=== PATIENT | male | born 1945 | race Two or more races ===

== ENCOUNTER 2017-03-31 19:01 | Inpatient (IN) | payer OTHER ==
[~2017-03-31] VITALS: Ht 180.3 cm; Wt 122.5 kg
[2017-03-31 01:25] VITALS: BP 73/41
[2017-03-31] MEDS ORDERED: dilTIAZem IV PUSH 25 MG/5 ML VIAL IVP ONE (19:15)
[2017-03-31] MEDS ORDERED: FURO80TA3 PO (19:33)
[2017-03-31] MEDS ORDERED: UBID100C PO (19:33)
[2017-03-31] MEDS ORDERED: APIX5TAB PO (19:33)
[2017-03-31] MEDS ORDERED: METO100T11 PO (19:33)
[2017-03-31] MEDS ORDERED: SITA50TA PO (19:33)
[2017-03-31] MEDS ORDERED: METO2.5T PO (19:33)
[2017-03-31] MEDS ORDERED: PERI4TAB2 PO (19:33)
[2017-03-31] MEDS ORDERED: ATOR40TA59 PO (19:34)
[2017-03-31] MEDS ORDERED: CHOL10003 PO (19:34)
[2017-03-31] MEDS ORDERED: PANT40TA5 PO (19:34)
[2017-03-31 19:36] LABS: BASO # 0.1 x10^3/uL (0.0-0.2); BASO % 0 % (0-3); EOS % 1 % (0-3); HEMATOCRIT 35.1 % (39.0-53.0); HEMOGLOBIN 11.9 g/dL (13.0-17.5); LYMPH # 0.7 x10^3/uL (1.0-4.8); LYMPH % 3 % (24-48); MEAN CORPUSCULAR HEMOGLOBIN 30 pg (25-35); MEAN CORPUSCULAR HGB CONC 34 g/dL (31-37); MEAN CORPUSCULAR VOLUME 88 fL (79-100); MONO % 6 % (0-9); NEUT % 90 % (31-73); PLATELET COUNT 211 x10^3/uL (140-400); RED BLOOD COUNT 3.97 x10^6/uL (4.30-5.70); RED CELL DISTRIBUTION WIDTH 14.7 % (11.5-14.5); WHITE BLOOD COUNT 20.3 x10^3/uL (4.0-11.0)
[2017-03-31 19:54] LABS: GFR 33.1; POTASSIUM 3.6 mmol/L (3.5-5.1)
[2017-03-31] MEDS ORDERED: NITROGLYCERIN SUBLINGUAL 0.4 MG BOTTLE OF 25. SL PRN (20:00)
[2017-03-31] MEDS ORDERED: ONDANSETRON PF 4 MG/2 ML VIAL. IV ONE (20:00)
[2017-03-31 20:01] LABS: ALBUMIN 3.4 g/dL (3.4-5.0); ALBUMIN/GLOBULIN RATIO 0.8 (1.0-1.7); TOTAL BILIRUBIN 0.7 mg/dL (0.2-1.0); TOTAL PROTEIN 7.9 g/dL (6.4-8.2)
[2017-03-31 20:14] LABS: % BASOS 1 % (0-3); % EOS 2 % (0-5); PLT ESTIMATE ADEQUATE (ADEQUATE)
[2017-03-31] MEDS ORDERED: ACETAMINOPHEN 500 MG TABLET PO ONE (20:45)
[2017-03-31 20:53] LABS: BODY TEMP ABG 100.4 DEG; CORRECTED PCO2 ABG 37 mmHg; CORRECTED PH ABG 7.45; CORRECTED PO2 ABG 95 mmHg; HCO3 ABG 25 mmol/L (21-28); PCO2 ABG 35 mmHg (35-46); PO2 ABG 89 mmHg (65-108); SAT O2 ABG 96 % (92-99)
[2017-03-31 21:08] LABS: PH ABG 7.46 (7.35-7.45)
[2017-03-31] MEDS ORDERED: FUROSEMIDE 20 MG/2 ML VIAL. IVP ONE (21:15)
[2017-03-31] MEDS ORDERED: BISACODYL 10 MG SUPP.RECT. PR ONE (21:30)
[2017-03-31] MEDS ORDERED: DIGOXIN IV 500 MCG/2 ML AMPUL. IV ONE (21:30)
[2017-03-31] MEDS ORDERED: PIPERACILLIN/TAZOBACTAM 3.375 GM in IV NORMAL SALINE 50ML 50 ML IV ONE (21:30)
[2017-03-31] MEDS ORDERED: IV NORMAL SALINE 1000ML BAG 1,000 ML IV ONE (21:30)
[2017-03-31] MEDS ORDERED: IV NORMAL SALINE 500ML BAG 500 ML IV ONE (22:00)
--- NOTE | 2017-03-31 22:45 | ED.ADGEN ---
Past Medical History Past Medical History: CHF, Diabetes-Type II, GERD, High Cholesterol, Hypertension Past Surgical History: Other Additional Past Surgical Histo: STENTS, "VALVE REPAIR" Alcohol Use: None Drug Use: None Adult General Chief Complaint Chief Complaint: NAUSEA/VOMITING/DIARRHA HPI HPI Patient is a 71 year old Male with history of congestive heart failure COPD, diabetes who presents with nausea and chills starting earlier today. Patient noted to be in A. fib with RVR, new onset on ED arrival. Patient also febrile with cough, body aches, left-sided chest pain and upper abdominal pain. Patient is currently on ElOQUIS. Denies chest pain with exertion. Patient is traveling from out of country and resides in [facility]. Accompanied at bedside by his children. Review of Systems Review of Systems ROS PER HPI Current Medications Current Medications Current Medications Medications (Trade) Dose Ordered Sig/Marques Start Time Stop Time Status Last Admin Dose Admin Acetaminophen (Tylenol) 1,000 mg 1X ONCE 03/31/17 20:45 03/31/17 20:46 DC 03/31/17 20:38 1,000 MG Bisacodyl (Dulcolax Supp) 10 mg 1X ONCE 03/31/17 21:30 03/31/17 21:31 DC 03/31/17 21:38 10 MG Digoxin (Lanoxin) 250 mcg 1X ONCE 03/31/17 21:30 03/31/17 21:31 DC 03/31/17 21:51 250 MCG Diltiazem HCl (Cardizem) 20 mg 1X ONCE 03/31/17 19:15 03/31/17 19:24 DC 03/31/17 19:18 20 MG Diltiazem HCl 125 mg/Dextrose 125 ml @ 0 mls/hr 1X ONCE 03/31/17 19:30 03/31/17 19:31 DC 03/31/17 19:30 5 MLS/HR Furosemide (Lasix) 20 mg 1X ONCE 03/31/17 21:15 03/31/17 21:16 DC 03/31/17 22:02 20 MG Levofloxacin/ Dextrose 150 ml @ 100 mls/hr 1X ONCE 03/31/17 20:15 03/31/17 21:44 DC 03/31/17 20:23 100 MLS/HR Nitroglycerin (Nitrostat) 0.4 mg PRN Q5MIN PRN 03/31/17 20:00 03/31/17 20:03 0.4 MG Ondansetron HCl (Zofran) 4 mg 1X ONCE 03/31/17 20:00 03/31/17 20:01 DC 03/31/17 20:01 4 MG Piperacillin Sod/ Tazobactam Sod 3.375 gm/Sodium Chloride 50 ml @ 100 mls/hr 1X ONCE 03/31/17 21:30 03/31/17 21:59 DC 03/31/17 21:39 100 MLS/HR Sodium Chloride 500 ml @ 500 mls/hr 1X ONCE 03/31/17 22:00 03/31/17 22:59 03/31/17 21:30 500 MLS/HR Allergies Allergies Allergies Coded Allergies Type Severity Reaction Last Updated Verified No Known Drug Allergies 03/31/17 No Physical Exam Physical Exam Constitutional: Acutely ill and weak appearing. HENT: Normocephalic, atraumatic, bilateral external ears normal. Eyes: PERRLA, EOMI, conjunctiva normal. Neck: Normal range of motion. Cardiovascular: Tachycardia, irreg rhythm. Lungs & Thorax: Patient's nonlabored, lung sounds Abdomen: Bowel sounds normal, epigastric pain, no tenderness. Skin: Warm, dry. Back: No tenderness. Extremities: Lower left extremity, Charcot. Plus pedal edema. Neurologic: Alert and oriented X 3, normal motor function, normal sensory function, no focal deficits noted. Psychologic: Affect normal, judgement normal, mood normal. Current Patient Data Vital Signs Vital Signs Date Time Temp Pulse Resp B/P (MAP) Pulse Ox O2 Delivery O2 Flow Rate FiO2 03/31/17 21:55 98 24 113/57 (75) 97 Nasal Cannula 2.0 03/31/17 19:57 99.7 99.7 Lab Values Laboratory Tests Test 03/31/17 19:12 03/31/17 20:09 03/31/17 20:52 White Blood Count 20.3 x10^3/uL (4.0-11.0) H Red Blood Count 3.97 x10^6/uL (4.30-5.70) L Hemoglobin 11.9 g/dL (13.0-17.5) L Hematocrit 35.1 % (39.0-53.0) L Mean Corpuscular Volume 88 fL (79-100) Mean Corpuscular Hemoglobin 30 pg (25-35) Mean Corpuscular Hemoglobin Concent 34 g/dL (31-37) Red Cell Distribution Width 14.7 % (11.5-14.5) H Platelet Count 211 x10^3/uL (140-400) Neutrophils (%) (Auto) 90 % (31-73) H Lymphocytes (%) (Auto) 3 % (24-48) L Monocytes (%) (Auto) 6 % (0-9) Eosinophils (%) (Auto) 1 % (0-3) Basophils (%) (Auto) 0 % (0-3) Neutrophils # (Auto) 18.2 x10^3uL (1.8-7.7) H Lymphocytes # (Auto) 0.7 x10^3/uL (1.0-4.8) L Monocytes # (Auto) 1.1 x10^3/uL (0.0-1.1) Eosinophils # (Auto) 0.2 x10^3/uL (0.0-0.7) Basophils # (Auto) 0.1 x10^3/uL (0.0-0.2) Segmented Neutrophils % 83 % (35-66) H Band Neutrophils % 1 % (0-9) Lymphocytes % 5 % (24-48) L Monocytes % 8 % (0-10) Eosinophils % 2 % (0-5) Basophils % 1 % (0-3) Platelet Estimate Adequate (ADEQUATE) Sodium Level 138 mmol/L (136-145) Potassium Level 3.6 mmol/L (3.5-5.1) Chloride Level 99 mmol/L (98-107) Carbon Dioxide Level 29 mmol/L (21-32) Anion Gap 10 (6-14) Blood Urea Nitrogen 71 mg/dL (8-26) H Creatinine 2.0 mg/dL (0.7-1.3) H Estimated GFR (Cockcroft-Gault) 33.1 BUN/Creatinine Ratio 36 (6-20) H Glucose Level 142 mg/dL (70-99) H Calcium Level 9.0 mg/dL (8.5-10.1) Total Bilirubin 0.7 mg/dL (0.2-1.0) Aspartate Amino Transferase (AST) 19 U/L (15-37) Alanine Aminotransferase (ALT) 23 U/L (16-63) Alkaline Phosphatase 107 U/L (46-116) Troponin I Quantitative < 0.017 ng/mL (0.000-0.055) C-Reactive Protein, Quantitative 12.1 mg/L (0-3.3) H KX-Vgz-A-Type Natriuretic Peptide 3130 pg/mL (0-124) H Total Protein 7.9 g/dL (6.4-8.2) Albumin 3.4 g/dL (3.4-5.0) Albumin/Globulin Ratio 0.8 (1.0-1.7) L Thyroid Stimulating Hormone (TSH) 0.917 uIU/mL (0.358-3.74) Lactic Acid Level 1.3 mmol/L (0.4-2.0) O2 Saturation 96 % (92-99) Arterial Blood pH 7.46 (7.35-7.45) H Arterial Blood pH (Temp corrected) 7.45 Arterial Blood pCO2 at Patient Temp 35 mmHg (35-46) Arterial Blood pCO2 (Temp correct) 37 mmHg Arterial Blood pO2 at Patient Temp 89 mmHg (65-108) Arterial Blood pO2 (Temp corrected) 95 mmHg Arterial Blood HCO3 25 mmol/L (21-28) Arterial Blood Base Excess 1 mmol/L (-3-3) FiO2 28.0 Laboratory Tests 03/31/17 19:12 Laboratory Tests 03/31/17 19:12 EKG EKG [EKG: A. fib with RVR] Radiology/Procedures Radiology/Procedures [Chest x-ray: Left lower lobe infiltrate] Impressions: Sepsis pneumonia, new onset A. fib with RVR, congestive heart failure and nonspecific chest pain Course & Med Decision Making Course & Med Decision Making Pertinent Labs and Imaging studies reviewed. (See chart for details) [Patient aggressively treated with IV Cardizem, Lasix, digoxin, and started on empiric antibiotics with stabilization of vital signs. IV fluid hydration cautiously given due to presence of underlying congestive heart failure. Dr. Barfield agrees to admit. Dr. Ash consulted agrees to follow.] Dragon Disclaimer Dragon Disclaimer This electronic medical record was generated, in whole or in part, using a voice recognition dictation system. KIERRA MANZANARES DO March 31, 2017 22:45
--- NOTE | 2017-03-31 23:59 | ACF ---
Admission Forms Criteria PNEUMONIA, COMMUNITY ACQUIRED Clinical Indications for Admission to Inpatient Care ( Place 'X' for any and all applicable criteria): Admission is indicated for ANY ONE of the following (1)(2)(3): [ ]I. Hypoxemia indicated by ANY ONE of the following: [ ]a) Oxygen saturation less than 90% while breathing room air [ ]b) PO2 less than 60 mm Hg (8.0 kPa) while breathing room air [ ]c) Chronic lung disease with significant deterioration from baseline oxygenation [ ]II. Appropriate diagnostic testing and treatment unavailable in outpatient or recovery facility (eg,testing or infection control measures unavailable(10) [X]III. Moderate-risk or high-risk category patients (Pneumonia Severity Index (PSI) class IV or V, or CURB-65 score of 3 or greater). [ ]IV. Outpatient treatment failure as indicated by ANY ONE of the following(9) : [ ]a) Failure to respond to antibiotic (eg, resistant organism) [ ]b) Clinically significant adverse effects from medication (eg, vomiting) [ ]c) Complications of pneumonia (eg, empyema, bacteremia) [ ]d) Significant worsening of comorbid cond necessitating inpatient care (eg, chronic heart failure) [ ]V. Intermediate-risk category patients (eg, PSI class III or CURB-65 score 2) who do not improve with initial therapy and observation. [ ]. Immunocompromised patients (eg, AIDS, chronic steroid use) at moderate or high risk based on clinical evaluation. [ ]VII. Complicated pleural effusions (eg, exudative, loculated) [ ]VIII.Hemodynamic instability [ ] IX. Altered mental status that is severe or persistent. [ ]X. Dehydration that is severe or persistent. [ ]XI. Bacteremia [ ]XII. Respiratory finding (eg. tachypnea) that do not respond to outpatient or observation care treatment Extended stay beyond goal length of stay may be needed for (20) [ ]a) Unclear diagnosis [ ]b) Pleural disease [ ]c) Severe pneumonia or treatment failure (25 [ ]d) Respiratory failure (anticipate invasive or noninvasive ventilatory support) [ ]e) Abnormal serum electrolytes (serum Na concentration less than 135 mEq/L (mmol/L) (32)(33) [ ]f) Clinically significant comorbid illness (eg, heart failure, atrial fibrillation with rapid heart rate, alcohol withdrawal, renal insufficiency)(34)(35) [ ]g) Comorbid acute exacerbation of COPD(36) [ ]h) Concomitant diagnosis of malignancy that may be associated with malnutrition, immunologic impairment, or bronchial obstruction. [ ]i) Concomitant altered mental status [ ]j) Culture-identified Gram-negative or antibiotic-resistant organism (eg, Pseudomonas, methicillin-resistant Staphylococcus aureus)(30) [ ]k) Healthcare-associated pneumonia The original [email or web address] content created by Ellie has been revised. The portions of the content which have been revised are identified through the use of italic text or in bold, and [facility] [facility] has neither reviewed nor approved the modified material. All other unmodified content is copyright [email or web address]. Please see references footnoted in the original [facility] edition 2016 Admission Criteria Met?: Yes MATHEW LANGFORD March 31, 2017 23:59
[2017-04-01] VITALS (40 sets, daily range): BP systolic 62–125; BP diastolic 38–89
[2017-04-01] MEDS ORDERED: IV NORMAL SALINE 1000ML BAG 1,000 ML IV ONE ×4 (01:45→21:00)
[2017-04-01] MEDS: ACETAMINOPHEN 325 MG TABLET. PO PRN ×4 (02:00→20:42)
[2017-04-01 03:46] LABS: BASO % 0 % (0-3); EOS % 0 % (0-3); HEMATOCRIT 28.7 % (39.0-53.0); HEMOGLOBIN 9.8 g/dL (13.0-17.5); LYMPH # 0.2 x10^3/uL (1.0-4.8); LYMPH % 1 % (24-48); MEAN CORPUSCULAR HEMOGLOBIN 30 pg (25-35); MEAN CORPUSCULAR HGB CONC 34 g/dL (31-37); MEAN CORPUSCULAR VOLUME 88 fL (79-100); MONO % 6 % (0-9); NEUT % 93 % (31-73); PLATELET COUNT 144 x10^3/uL (140-400); RED BLOOD COUNT 3.26 x10^6/uL (4.30-5.70); RED CELL DISTRIBUTION WIDTH 14.9 % (11.5-14.5); WHITE BLOOD COUNT 22.1 x10^3/uL (4.0-11.0)
[2017-04-01] MEDS ORDERED: INSU100I13 SQ (03:46)
[2017-04-01] MEDS ORDERED: INSU100C SQ (03:46)
[2017-04-01 04:01] LABS: ALBUMIN 2.5 g/dL (3.4-5.0); ALBUMIN/GLOBULIN RATIO 0.9 (1.0-1.7); CALCIUM 7.4 mg/dL (8.5-10.1); CREATININE 2.3 mg/dL (0.7-1.3); GFR 28.2; POTASSIUM 3.3 mmol/L (3.5-5.1); TOTAL BILIRUBIN 1.1 mg/dL (0.2-1.0); TOTAL PROTEIN 5.3 g/dL (6.4-8.2)
[2017-04-01] MEDS: POTASSIUM CHLORIDE 10MEQ 100 ML IV SCH ×4 (04:45→08:03)
[2017-04-01] MEDS: NOREPINEPHRIN PREMIX 250 ML IV PRN ×2 (05:02→20:32)
[2017-04-01] MEDS ORDERED: PIPERACILLIN/TAZOBACTAM 3.375 GM in IV NORMAL SALINE 50ML 50 ML IV SCH (06:00)
--- NOTE | 2017-04-01 06:52 | EKG ---
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
--- NOTE | 2017-04-01 06:56 | EKG ---
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
--- NOTE | 2017-04-01 07:31 | RAD ---
Exam performed: One view chest. History: Left-sided chest pain. Date of service: 03/31/17. Comparison: None available Single AP upright portable view chest findings: Mild cardiomegaly. Pulmonary vascularity is unremarkable. Prominent interstitial markings seen in both lungs probably a chronic basis. No acute infiltrates, effusion or pneumothorax seen. Bones are normal Impression: Mild cardiomegaly. No acute pulmonary findings seen.
[2017-04-01] MEDS ORDERED: NORMAL SALINE IV ONE (10:00)
[2017-04-01] MEDS ORDERED: PIPERACILLIN/TAZOBACTAM 2.25 GM in IV NORMAL SALINE 50ML 50 ML IV SCH (10:00)
[2017-04-01] MEDS ORDERED: DAPTOMYCIN IV ONE (10:00)
[2017-04-01] MEDS: POTASSIUM CL 20MEQ-0.45% NACL 1,000 ML IV SCH (10:06)
[2017-04-01] MEDS: HEPARIN PF for SUB-Q USE 5,000 UNIT/0.5 ML VIAL. SQ SCH ×2 (10:06→20:37)
--- NOTE | 2017-04-01 10:33 | PDOC ---
Infectious Disease Note ROS ROS GEN: Denies fevers, chills, sweats HEENT: Denies blurred vision, sore throat CV: Denies chest pain RESP: Denies shortness of air, cough GI: Denies n/v/d NEURO: Denies confusion, dizziness MSK: Denies weakness, joint pain/swelling Vital Sign Vital Signs Vital Signs Date Time Temp Pulse Resp B/P (MAP) Pulse Ox O2 Delivery O2 Flow Rate FiO2 04/01/17 09:00 81 16 81/59 (66) 100 Nasal Cannula 2.0 04/01/17 08:00 99.2 99.2 Physical Exam PHYSICAL EXAM GENERAL: NAD, Alert HEENT: PERRL, OC/OP NECK: Supple, no JVD, no LN LUNGS: Clear HEART: S1S2, no gallop, no murmur ABD: Soft, NT, no organomegaly, no rebound EXT: No edema, no cyanosis 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, 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 x 3, no focal neurologic deficit SKIN: No rash IV: ok Labs Lab Laboratory Tests Test 03/31/17 19:12 03/31/17 20:09 03/31/17 20:52 04/01/17 03:15 White Blood Count 20.3 x10^3/uL (4.0-11.0) 22.1 x10^3/uL (4.0-11.0) Red Blood Count 3.97 x10^6/uL (4.30-5.70) 3.26 x10^6/uL (4.30-5.70) Hemoglobin 11.9 g/dL (13.0-17.5) 9.8 g/dL (13.0-17.5) Hematocrit 35.1 % (39.0-53.0) 28.7 % (39.0-53.0) Mean Corpuscular Volume 88 fL (79-100) 88 fL (79-100) Mean Corpuscular Hemoglobin 30 pg (25-35) 30 pg (25-35) Mean Corpuscular Hemoglobin Concent 34 g/dL (31-37) 34 g/dL (31-37) Red Cell Distribution Width 14.7 % (11.5-14.5) 14.9 % (11.5-14.5) Platelet Count 211 x10^3/uL (140-400) 144 x10^3/uL (140-400) Neutrophils (%) (Auto) 90 % (31-73) 93 % (31-73) Lymphocytes (%) (Auto) 3 % (24-48) 1 % (24-48) Monocytes (%) (Auto) 6 % (0-9) 6 % (0-9) Eosinophils (%) (Auto) 1 % (0-3) 0 % (0-3) Basophils (%) (Auto) 0 % (0-3) 0 % (0-3) Neutrophils # (Auto) 18.2 x10^3uL (1.8-7.7) 20.5 x10^3uL (1.8-7.7) Lymphocytes # (Auto) 0.7 x10^3/uL (1.0-4.8) 0.2 x10^3/uL (1.0-4.8) Monocytes # (Auto) 1.1 x10^3/uL (0.0-1.1) 1.3 x10^3/uL (0.0-1.1) Eosinophils # (Auto) 0.2 x10^3/uL (0.0-0.7) 0.0 x10^3/uL (0.0-0.7) Basophils # (Auto) 0.1 x10^3/uL (0.0-0.2) 0.0 x10^3/uL (0.0-0.2) Segmented Neutrophils % 83 % (35-66) Band Neutrophils % 1 % (0-9) Lymphocytes % 5 % (24-48) Monocytes % 8 % (0-10) Eosinophils % 2 % (0-5) Basophils % 1 % (0-3) Platelet Estimate Adequate (ADEQUATE) Sodium Level 138 mmol/L (136-145) 138 mmol/L (136-145) Potassium Level 3.6 mmol/L (3.5-5.1) 3.3 mmol/L (3.5-5.1) Chloride Level 99 mmol/L (98-107) 102 mmol/L (98-107) Carbon Dioxide Level 29 mmol/L (21-32) 25 mmol/L (21-32) Anion Gap 10 (6-14) 11 (6-14) Blood Urea Nitrogen 71 mg/dL (8-26) 74 mg/dL (8-26) Creatinine 2.0 mg/dL (0.7-1.3) 2.3 mg/dL (0.7-1.3) Estimated GFR (Cockcroft-Gault) 33.1 28.2 BUN/Creatinine Ratio 36 (6-20) 32 (6-20) Glucose Level 142 mg/dL (70-99) 71 mg/dL (70-99) Calcium Level 9.0 mg/dL (8.5-10.1) 7.4 mg/dL (8.5-10.1) Total Bilirubin 0.7 mg/dL (0.2-1.0) 1.1 mg/dL (0.2-1.0) Aspartate Amino Transf (AST/SGOT) 19 U/L (15-37) 16 U/L (15-37) Alanine Aminotransferase (ALT/SGPT) 23 U/L (16-63) 17 U/L (16-63) Alkaline Phosphatase 107 U/L (46-116) 58 U/L (46-116) Troponin I Quantitative < 0.017 ng/mL (0.000-0.055) 0.068 ng/mL (0.000-0.055) C-Reactive Protein, Quantitative 12.1 mg/L (0-3.3) JO-Pdl-K-Type Natriuretic Peptide 3130 pg/mL (0-124) Total Protein 7.9 g/dL (6.4-8.2) 5.3 g/dL (6.4-8.2) Albumin 3.4 g/dL (3.4-5.0) 2.5 g/dL (3.4-5.0) Albumin/Globulin Ratio 0.8 (1.0-1.7) 0.9 (1.0-1.7) Thyroid Stimulating Hormone (TSH) 0.917 uIU/mL (0.358-3.74) Lactic Acid Level 1.3 mmol/L (0.4-2.0) O2 Saturation 96 % (92-99) Arterial Blood pH 7.46 (7.35-7.45) Arterial Blood pH (Temp corrected) 7.45 Arterial Blood pCO2 at Patient Temp 35 mmHg (35-46) Arterial Blood pCO2 (Temp correct) 37 mmHg Arterial Blood pO2 at Patient Temp 89 mmHg (65-108) Arterial Blood pO2 (Temp corrected) 95 mmHg Arterial Blood HCO3 25 mmol/L (21-28) Arterial Blood Base Excess 1 mmol/L (-3-3) FiO2 28.0 Test 04/01/17 08:15 Glucose (Fingerstick) 106 mg/dL (70-99) Objective Assessment Strep sepsis - POA 03/31. On Levophed 15 MELA Leukocytosis Right shoulder pain but exam appears benign DM Afib -RVR Plan Plan of Care Dosed Zosyn/Dapto (times one) Repeat blood cults in am. UA C/S ECHO F/u labs and cults May need further eval based on ID of bacteria May need renal eval 35 mins Thank you # [id number] JESSICA INFANTE MD April 01, 2017 10:33
--- NOTE | 2017-04-01 10:53 | RAD ---
Indication: Right shoulder pain. Time of exam 10:42 AM The glenohumeral and acromial clavicular alignment are normal. The acromiohumeral space is normal. No fracture or dislocation is seen. There are small calcific densities adjacent to the greater tuberosity near the rotator cuff insertion, likely owing to calcific tendinitis of the rotator cuff. Impression: Findings suggestive of calcific tendinitis of the rotator cuff. No acute bony abnormality is detected.
--- NOTE | 2017-04-01 10:54 | RAD ---
Indication: Congestion. Time of exam 10:40 AM Comparison is made with prior chest from one day earlier. The heart is enlarged. No infiltrate or failure is detected. No effusion or pneumothorax is seen. Impression: Cardiomegaly. No other abnormality is detected.
[2017-04-01] MEDS ORDERED: DEXTROSE 50% 25 GM / 50ML DISP.SYRIN. IV PRN (12:30)
[2017-04-01] MEDS ORDERED: INSULIN ASPART 300 UNITS/3 ML INSULN.PEN SQ SCH ×2 (12:30→17:00)
--- NOTE | 2017-04-01 12:57 | CONS ---
DATE OF CONSULTATION: 04/01/2017 REASON FOR CONSULTATION: Atrial fibrillation with RVR. HISTORY OF PRESENT ILLNESS: The patient is a pleasant 71-year-old gentleman who was admitted to the ICU after presenting to the ER yesterday in the setting of feeling ill. He was apparently his usual state of health until about 05:00 p.m. yesterday evening when he began to feel tired and feverish. Upon arrival to the ER, he was noted to be hypotensive and with an elevated white blood cell count and was treated appropriately according sepsis protocol and was given intravenous fluids and started on vasopressors. In addition to having these issues, he was noted to have a heart rate in the 150s consistent with atrial fibrillation with a rapid ventricular response for which he was given diltiazem therapy and unfortunately this dropped his pressure further, and he was resuscitated with more IV fluids. Recurrent episodes of atrial fibrillation was then treated with digoxin, and he has since been stabilized overnight. In speaking with the patient at baseline, he denies any chest pain, orthopnea, PND, or lower extremity edema. 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 Approximately 2-3 years ago, he had a coronary intervention consisting of 2 stents to unknown arteries and reports that since then he has had significant improvement in his symptoms. 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 PAST MEDICAL HISTORY: 1. Diabetes. 2. Coronary artery disease. 3. Systolic heart failure. 4. Atrial fibrillation, on anticoagulation with Eliquis. SOCIAL HISTORY: The patient denies any alcohol, tobacco, or illicit drug use. FAMILY HISTORY: Noncontributory. REVIEW OF SYSTEMS: Negative for 10 out of 14 systems reviewed, unless otherwise mentioned above in HPI. PHYSICAL EXAMINATION: VITAL SIGNS: Afebrile, heart rate 84, blood pressure 92/56 on 13 mcg of Levophed, and pulse oximetry 98% on 2 liters. GENERAL: He is alert and oriented but appears tired. HEAD AND NECK: Unremarkable. CARDIAC: Irregular rate and rhythm without any significant murmurs, rubs, or gallops. LUNGS: Fairly clear to auscultation bilaterally. ABDOMEN: Soft, mildly tender to palpation diffusely. EXTREMITIES: No clubbing or cyanosis but does have some trace lower extremity edema with chronic venous stasis changes and venous hypertension. MUSCULOSKELETAL: No trauma. NEUROLOGIC: No focal deficits or lateralizing signs. DIAGNOSTIC STUDIES: Troponin minimally elevated at 0.068 and white blood cell count greater than 20. EKG reveals atrial fibrillation without any ischemic changes. Echocardiogram is currently pending. IMPRESSION: 1. Sepsis with hypotension and elevated white blood cell count of unclear etiology. Streptococcus species has been identified. 2. Elevated troponin, likely in the setting of septic shock. 3. Prior history of systolic heart failure, ejection fraction unknown. 4. Diabetes. 5. Atrial fibrillation with a rapid ventricular response, currently being controlled with digoxin therapy. RECOMMENDATIONS: 1. We will try to obtain his outside hospital records from [facility]. 2. We will obtain an echocardiogram to further evaluate his LV systolic function to help delineate his medical therapy. 3. We will hold Eliquis for now and monitor his symptoms and likely reinitiate this closer to discharge as he may need intravenous lines, etc. during his current critically ill. 4. Medical therapy for infection per Infectious Disease team. Thank you for this consultation. We will follow along closely. STEWART MOLINA MD DR: SAL/val JOB#: [id number] / [id number]
[2017-04-01] MEDS: METOPROLOL SUCC 24HR ER 100 MG TAB.ER.24H. PO SCH (13:00)
--- NOTE | 2017-04-01 14:22 | RAD ---
PROCEDURE MR of the right shoulder HISTORY Right shoulder pain. Sepsis. COMPARISON None None TECHNIQUE Routine multiplanar sequences are obtained. FINDINGS There is moderate motion degradation. The acromioclavicular joint is mildly degenerative. No evidence of rotator cuff tear. No significant subdeltoid bursal effusion. No significant glenohumeral joint effusion. Abnormal signal within the posterosuperior labrum compatible with a tear. Small associated paralabral cyst. Limited labrum exam due to the motion degradation. Mild degenerative changes are seen at the glenohumeral joint. Biceps tendon poorly seen, but the could be due to the motion degradation. No evidence of bone edema, bone destruction or acute fracture. No abnormal soft tissue fluid collection. Muscle tissue signal appears intact. IMPRESSION 1. Tear of the posterosuperior labrum. 2. No evidence of rotator cuff tear. Electronically signed by: Geoffrey Walls MD (April 01, 2017 14:20:56)
[2017-04-01] MEDS: PANTOPRAZOLE 40 MG TABLET.DR. PO SCH (14:59)
[2017-04-01] MEDS: LINAGLIPTIN 5 MG TABLET PO SCH (14:59)
[2017-04-01] MEDS: CHOLECALCIFEROL (VITAMIN D3) 1,000 UNIT TABLET PO SCH (14:59)
[2017-04-01] MEDS: APIXABAN 5 MG TABLET. PO SCH ×2 (15:00→20:36)
[2017-04-01] MEDS: INSULIN ASPART 300 UNITS/3 ML INSULN.PEN SQ SCH ×2 (15:03→20:38)
[2017-04-01] MEDS: PIPERACILLIN/TAZOBACTAM 2.25 GM in IV NORMAL SALINE 50ML 50 ML IV SCH ×2 (15:38→18:11)
--- NOTE | 2017-04-01 16:25 | HP ---
ADMIT DATE: 04/01/2017 CHIEF COMPLAINT: Nausea, vomiting, diarrhea. HISTORY OF PRESENT ILLNESS: The patient is a 71-year-old Ema jarquin from [place] who is on a conference here in [place] where he started feeling ill , noted fevers, generalized body aches, left-sided chest pain, upper abdominal pain and right shoulder pain. He, therefore, decided to come to the Emergency Room. Here, he was noted to be tachycardic. He does have a history of atrial fibrillation as well as CHF, CAD, for which he had undergone stent placements and further interventions exactly 2 years ago. He was found with hypotension as well, triggering sepsis protocol and he was admitted to the ICU. Since then, his initial blood cultures from less than 8 hours prior actually have returned positive for gram-positive cocci in chains. PAST MEDICAL HISTORY: CAD, CHF, AFib, hypertension, hypercholesterolemia, diabetes type 2, GERD, question of valve repair as well 2 years ago. FAMILY HISTORY: Positive for heart disease in brother and father. SOCIAL HISTORY: Ema jarquin, lives in a commune with his [place]. No smoking, terms himself a recovering alcoholic, not having had any alcohol in the past year, no drug use. ALLERGIES: No known drug allergies. HOME MEDICATIONS: Reconciled with MAR. REVIEW OF SYSTEMS: Still feels quite weak. Has severe right shoulder pain. Denies any recent injury to his shoulder or any strains. Never had pain there before. Nausea and vomiting have resolved and rigors are resolved at this time as well. Rest of organ system review is benign. PHYSICAL EXAMINATION: VITAL SIGNS: Currently show a blood pressure of 99/58, heart rate of 88, respiratory rate of 13. He is afebrile. He initially presented to the ICU with a blood pressure of 74/63, heart rate at 97, temperature has not been documented here. GENERAL: This is an obese 71-year-old gentleman, awake, alert, in no acute distress, fatigued appearing, but very pleasant. HEENT: Shows no scleral icterus. NECK: Supple, without any lymphadenopathy. LUNGS: Fairly clear anteriorly. HEART: Slightly tachycardic. ABDOMEN: Positive bowel sounds, soft, nontender. EXTREMITIES: Show trace ankle edema bilaterally. He has a blister on the sole of his foot, which he cannot feel secondary to diabetic neuropathy. It does not appear to be infected. LABORATORY DATA: Labs with a WBC of 22.1; neutrophils at 93; lymphs 1; hemoglobin 9.8; MCV 88; platelets of 144, down from 211 at admission last night. BUN and creatinine at 74 and 2.3. Electrolytes with potassium of 3.3. LFTs essentially within normal limits. Calcium at 7.4. Albumin 2.5. Initial troponin at 0.068. Magnesium at only 0.9. IMAGING STUDIES: Chest x-ray shows cardiomegaly, no other abnormality noted. A shoulder x-ray was obtained as well, suggestive of calcific tendonitis in the rotator cuff, no bony abnormality noted. ASSESSMENT AND PLAN: The patient is a 71-year-old gentleman with clear signs and symptoms of sepsis including gram-positive cocci in his bloodstream. His blood pressure currently has to be supported with Levophed after receiving multiple liters of IV fluids. We will have to be cautious with IVF given his history of heart failure. So far, he seems to be tolerating well. Monitor with serial enzymes. With gram-positive cocci, he has been started on daptomycin empirically by Dr. Jones. Greatly appreciate help with management of Infectious Disease Service. The patient clearly has renal issues as well. His BUN and creatinine levels are actually maybe his baseline. He does know that his primary care physician is cautious with nephrotoxic medications, but patient is unaware of his baseline creatinine. We will continue to monitor. Consider renal input if indicated by further worsening of labs. Given his significant heart history, I will involve Cardiology as well. The patient notes he had an echo in the past year, but is unaware of specific findings. May need to repeat echo to evaluate function, especially with ongoing IV fluid hydration. The patient does have atrial fibrillation. I suspect that his tachycardia is actually more infection induced rather than cardiac related. He also is on Levophed at this time. We will monitor closely. We will continue his apixaban, but hold his metoprolol for the time being given his hypotension. The patient is also diabetic. He is now able to better eat. We will continue his home medications and monitor with insulin sliding scale. JOSSELINE BERGMAN MD DR: DEMARIO/val JOB#: [id number] / [id number] SHAKEEL
[2017-04-01] MEDS: ATORVASTATIN CALCIUM 40 MG TABLET. PO SCH (20:36)
[2017-04-01 22:37] LABS: BILIRUBIN,URINE NEGATIVE (NEG); GLUCOSE,URINE NEGATIVE (NEG); NITRITE,URINE NEGATIVE (NEG); PROTEIN,URINE 30 mg/dL (NEG-TRACE); UROBILINOGEN,URINE 0.2 mg/dL (0.2 mg/dL)
[2017-04-01 22:42] LABS: BACTERIA,URINE FEW /HPF (0-FEW); RBC,URINE 0 /HPF (0-2); SQUAMOUS EPITHELIAL CELL,UR OCC /LPF; WBC,URINE OCC /HPF (0-4)
[2017-04-02] VITALS (34 sets, daily range): BP systolic 18–126; BP diastolic 45–71
[2017-04-02] MEDS ORDERED: DIGOXIN IV 500 MCG/2 ML AMPUL. IV ONE ×3 (00:45→10:15)
[2017-04-02] MEDS: PIPERACILLIN/TAZOBACTAM 2.25 GM in IV NORMAL SALINE 50ML 50 ML IV SCH ×6 (00:57→23:43)
[2017-04-02] MEDS: POTASSIUM CL 20MEQ-0.45% NACL 1,000 ML IV SCH ×2 (03:19→13:10)
[2017-04-02] MEDS: INSULIN ASPART 300 UNITS/3 ML INSULN.PEN SQ SCH ×7 (07:30→21:00)
--- NOTE | 2017-04-02 07:46 | PDOC ---
Infectious Disease Note Subjective Subjective Feels better. Slept better. Has some RLE pain Chills yesterday afternoon ROS ROS GEN: Denies fevers, chills, sweats HEENT: Denies blurred vision, sore throat CV: Denies chest pain RESP: Denies shortness of air, cough GI: Denies n/v/d NEURO: Denies confusion, dizziness Vital Sign Vital Signs Vital Signs Date Time Temp Pulse Resp B/P (MAP) Pulse Ox O2 Delivery O2 Flow Rate FiO2 04/02/17 07:00 118 19 107/51 (69) 97 Room Air 04/02/17 04:00 99.1 99.1 04/01/17 11:30 2.0 Physical Exam PHYSICAL EXAM GENERAL: NAD, Alert, in chair HEENT: PERRL, nml conj. OC/OP- clear NECK: Supple, no JVD, no LN LUNGS: Clear HEART: S1S2, no gallop, no murmur ABD: Soft, NT, no organomegaly, no rebound, obese EXT: No clubbing, no cyanosis. + Charcot changes. RLE with warmth and mild to mod erythema and tenderness. 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 3, no focal neurologic deficit SKIN: No rash IV: ok Labs Lab Laboratory Tests Test 04/01/17 08:15 04/01/17 14:58 04/01/17 15:00 04/01/17 20:34 Glucose (Fingerstick) 106 mg/dL (70-99) 161 mg/dL (70-99) 154 mg/dL (70-99) Clostridium difficile Toxin (PCR) Negative (Negative) Test 04/01/17 21:00 Urine Color Yellow Urine Clarity Clear Urine pH 5.0 Urine Specific [place] 1.015 Urine Protein 30 mg/dL (NEG-TRACE) Urine Glucose (UA) Negative mg/dL (NEG) Urine Ketones (Stick) Negative mg/dL (NEG) Urine Blood Negative (NEG) Urine Nitrite Negative (NEG) Urine Bilirubin Negative (NEG) Urine Urobilinogen Dipstick 0.2 mg/dL (0.2 mg/dL) Urine Leukocyte Esterase Negative (NEG) Urine RBC 0 /HPF (0-2) Urine WBC Occ /HPF (0-4) Urine Squamous Epithelial Cells Occ /LPF Urine Bacteria Few /HPF (0-FEW) Objective Assessment Strep C sepsis - POA 03/31. Off Levophed. cellulitis likely source RLE cellulitis Left 2 nd toe discoloration but no gross sign of infection MELA Leukocytosis Right shoulder pain but exam appears benign. Labrum tear DM Afib -RVR Plan Plan of Care Cont Zosyn Hold further Dapto (times one) F/u repeat blood cults F/u ECHO F/u labs and cults - adjust abx based on further results May need renal eval - labs this am pending JESSICA INFANTE MD April 02, 2017 07:46
[2017-04-02] MEDS: INSULIN DETEMIR 300 UNITS/3 ML INSULN.PEN. SQ SCH (08:00)
[2017-04-02 08:11] LABS: CALCIUM 7.9 mg/dL (8.5-10.1); CREATININE 1.9 mg/dL (0.7-1.3); GFR 35.1; POTASSIUM 3.7 mmol/L (3.5-5.1)
[2017-04-02] MEDS: LINAGLIPTIN 5 MG TABLET PO SCH (08:57)
[2017-04-02] MEDS: CHOLECALCIFEROL (VITAMIN D3) 1,000 UNIT TABLET PO SCH (08:57)
[2017-04-02] MEDS: PANTOPRAZOLE 40 MG TABLET.DR. PO SCH (08:57)
[2017-04-02] MEDS: METOPROLOL SUCC 24HR ER 100 MG TAB.ER.24H. PO SCH (08:58)
[2017-04-02] MEDS: APIXABAN 5 MG TABLET. PO SCH ×2 (08:58→20:58)
[2017-04-02] MEDS: HEPARIN PF for SUB-Q USE 5,000 UNIT/0.5 ML VIAL. SQ SCH (09:02)
[2017-04-02 09:06] LABS: BASO % 0 % (0-3); EOS % 0 % (0-3); HEMATOCRIT 29.4 % (39.0-53.0); LYMPH # 0.3 x10^3/uL (1.0-4.8); LYMPH % 1 % (24-48); MEAN CORPUSCULAR HEMOGLOBIN 30 pg (25-35); MEAN CORPUSCULAR HGB CONC 34 g/dL (31-37); MEAN CORPUSCULAR VOLUME 88 fL (79-100); MONO % 4 % (0-9); NEUT % 95 % (31-73); PLATELET COUNT 137 x10^3/uL (140-400); RED BLOOD COUNT 3.34 x10^6/uL (4.30-5.70); RED CELL DISTRIBUTION WIDTH 14.9 % (11.5-14.5); WHITE BLOOD COUNT 23.8 x10^3/uL (4.0-11.0)
--- NOTE | 2017-04-02 09:29 | PDOC ---
PROGRESS NOTES Chief Complaint Chief Complaint Sepsis ASSESSMENT AND PLAN: 1. Sepsis: BP stable, remains tachy. 2. Bacteremia: beta hemolytic Strep C in blood cult. Daptomycin switched to levaquin and Zosyn, d/w Dr Jones 3. MELA: 2/2 hypotension. sl improved. 4. CKD: baseline unk, but pt aware of mild deficiency 5. CAD, CHF: no acute issues 6. Afib: RVR at admit, prob 2/2 sepsis. poss SHILPI/cardioversion today 7. OAC: on apixiban 8. DM2: well controlled on home regimen. 9. Prophylaxis: PPI, lovenox History of Present Illness History of Present Illness essentially unchanged, feels weak. no nausea Vitals Vitals Vital Signs Date Time Temp Pulse Resp B/P (MAP) Pulse Ox O2 Delivery O2 Flow Rate FiO2 04/02/17 08:58 128 102/71 04/02/17 07:00 19 97 Room Air 04/02/17 04:00 99.1 99.1 04/01/17 11:30 2.0 Physical Exam General: Alert, Cooperative, No acute distress Heart: Regular rate, Other (tachy irreg) Lungs: Clear Abdomen: Normal bowel sounds, Soft, No tenderness Extremities: No edema Skin: No rashes Labs LABS Laboratory Tests Test 04/01/17 14:58 04/01/17 15:00 04/01/17 20:34 04/01/17 21:00 Glucose (Fingerstick) 161 mg/dL (70-99) 154 mg/dL (70-99) Clostridium difficile Toxin (PCR) Negative (Negative) Urine Color Yellow Urine Clarity Clear Urine pH 5.0 Urine Specific [place] 1.015 Urine Protein 30 mg/dL (NEG-TRACE) Urine Glucose (UA) Negative mg/dL (NEG) Urine Ketones (Stick) Negative mg/dL (NEG) Urine Blood Negative (NEG) Urine Nitrite Negative (NEG) Urine Bilirubin Negative (NEG) Urine Urobilinogen Dipstick 0.2 mg/dL (0.2 mg/dL) Urine Leukocyte Esterase Negative (NEG) Urine RBC 0 /HPF (0-2) Urine WBC Occ /HPF (0-4) Urine Squamous Epithelial Cells Occ /LPF Urine Bacteria Few /HPF (0-FEW) Test 04/02/17 07:30 Sodium Level 134 mmol/L (136-145) Potassium Level 3.7 mmol/L (3.5-5.1) Chloride Level 101 mmol/L (98-107) Carbon Dioxide Level 21 mmol/L (21-32) Anion Gap 12 (6-14) Blood Urea Nitrogen 55 mg/dL (8-26) Creatinine 1.9 mg/dL (0.7-1.3) Estimated GFR (Cockcroft-Gault) 35.1 Glucose Level 143 mg/dL (70-99) Calcium Level 7.9 mg/dL (8.5-10.1) JOSSELINE BERGMAN MD April 02, 2017 09:29
[2017-04-02] MEDS ORDERED: ENOXAPARIN 40 MG/0.4 ML SYRINGE. SQ SCH (09:30)
--- NOTE | 2017-04-02 09:43 | CONS ---
DATE OF CONSULTATION: 04/01/2017 PATIENT'S ROOM: ICU 11. REQUESTING PHYSICIAN: Dr. Bowman. REASON FOR CONSULTATION: Positive blood cultures and sepsis. 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 He states he returned to his hotel room yesterday at 5:15, but approximately 5:30 began having shaking chills. Denies any falls or traumas. Denies any known ill contacts. He had no headache, no sinus issues, no sore throat. He does have issues at times with loose stools and he did take some Imodium on Thursday and he feels somewhat constipated. He denies any dysuria, frequency, urgency. Denies any bug bites. No trauma and no wounds. He presented last evening to [facility] with complaints of nausea, vomiting and diarrhea. He was noted initially to have a temperature of 98.9, but his blood pressure was 73/41. He was given a dose of levofloxacin and was admitted to the Intensive Care Unit. Cultures were obtained and his white count was 20.3 on admission. This morning cultures returned positive in 2 of 4 bottles with gram-positive cocci in chains suggestive of strep. Has since discontinued the levofloxacin and started Zosyn adjusted for his kidney function, as his creatinine is at 2.3 and with his uncertainty of which way his kidneys are going to go, I dose daptomycin IV x 1. Currently, the patient is lying in bed. He is much more comfortable. PAST MEDICAL HISTORY: Positive for diabetes. He has Charcot foot. He has history of hypertension, coronary artery disease and history of cataracts. PAST SURGICAL HISTORY: Positive for cataract surgery as well as cardiac stent. REVIEW OF SYSTEMS: He is complaining of some right shoulder pain. Denies any trauma or bites to the area. Feels pinpoint in nature. Otherwise negative except for those mentioned above. ALLERGIES: No known drug allergies. SOCIAL HISTORY: Nonsmoker, no alcohol. Denies any ill contacts. FAMILY HISTORY: Positive for diabetes, heart disease. CURRENT MEDICATIONS: Again, he did receive Cardizem as well as digoxin and diltiazem. He received a dose of Lasix and a dose of Zosyn. Cardizem drip x 1 and now the daptomycin. PHYSICAL EXAMINATION: VITAL SIGNS: T-max 99.7, currently 99.2, pulse 81, respirations 16, blood pressure 81/59, satting 100% on 2 liters. CONSTITUTIONAL: He is a very pleasant. He is alert. He is in no acute distress. HEENT: Pupils are equal and reactive, status post cataract surgery. Normal conjunctivae as well. Oral cavity, pharynx is clear. He has good dentition. No petechia. NECK: Supple, no JVD. LUNGS: Clear to auscultation. HEART: S1, S2 without gross murmur. ABDOMEN: Obese, soft, nontender, nondistended with positive bowel sounds. EXTREMITIES: Without clubbing, cyanosis. He has bilateral Charcot foot changes. There is no erythema. There is no drainage. There are no wounds. There is no purulence. His right shoulder is without inflammation. He did have some ice on it, so it was cool to touch, but there is no erythema. There is no warmth. There are no puncture wounds. No signs of any swelling. SKIN: Warm to touch without signs of rash. NEUROLOGIC: He is nonfocal, moves all of his extremities. PSYCHIATRIC: Affect is pleasant. LABORATORY DATA: White count this morning 22.1, hemoglobin 9.8, platelets of 144, neutrophils of 93, creatinine of ____, most recent fingerstick of 106, total bilirubin 1.1, calcium 7.4, AST 16, ALT 17. CRP was 12.1. Troponin 0.068. Blood cultures are currently pending. Chest x-ray without acute process. IMPRESSION: 1. Streptococcal sepsis present on admission from 03/31/2017, on Levophed ____. 2. Acute kidney injury. 3. Leukocytosis. 4. Right shoulder pain, but appears benign on exam. 5. Diabetes. 6. Atrial fibrillation with rapid ventricular response. RECOMMENDATIONS: Zosyn has been dosed, daptomycin x 1 given his renal failure. We will repeat blood cultures in the morning. Obtain UA and C and S. Also order an echo. Follow up on labs and cultures. May need further evaluation based on identification of bacteria, may need renal evaluation. Thank you for allowing me to participate in the patient is a care. Should you have any further questions, please do not hesitate to contact me. I spent 35 minutes of critical care time. JESSICA INFANTE MD DR: SILVA/val JOB#: [id number] / [id number]
--- NOTE | 2017-04-02 09:53 | PDOC ---
CARDIO Progress Notes Date and Time Date of Service 04/02/2017 Time of Evaluation 0950 Subjective Subjective: No Chest Pain, No shortness of breath, No Palpitations, No Dizziness, Other (sitting up in chair) Vitals Vitals Vital Signs Date Time Temp Pulse Resp B/P (MAP) Pulse Ox O2 Delivery O2 Flow Rate FiO2 04/02/17 08:58 128 102/71 04/02/17 08:00 Room Air 04/02/17 07:00 19 97 04/02/17 04:00 99.1 99.1 04/01/17 11:30 2.0 Weight Weight [ ] Input and Output Intake and Output Intake and Output 04/02/17 07:00 Intake Total 4921 ml Output Total 3125 ml Balance 1796 ml Intake Oral 1440 ml IV Total 3481 ml Output Urine Total 3125 ml # Bowel Movements 6 Laboratory Labs Laboratory Tests Test 04/01/17 14:58 04/01/17 15:00 04/01/17 20:34 04/01/17 21:00 Glucose (Fingerstick) 161 mg/dL (70-99) 154 mg/dL (70-99) Clostridium difficile Toxin (PCR) Negative (Negative) Urine Color Yellow Urine Clarity Clear Urine pH 5.0 Urine Specific [place] 1.015 Urine Protein 30 mg/dL (NEG-TRACE) Urine Glucose (UA) Negative mg/dL (NEG) Urine Ketones (Stick) Negative mg/dL (NEG) Urine Blood Negative (NEG) Urine Nitrite Negative (NEG) Urine Bilirubin Negative (NEG) Urine Urobilinogen Dipstick 0.2 mg/dL (0.2 mg/dL) Urine Leukocyte Esterase Negative (NEG) Urine RBC 0 /HPF (0-2) Urine WBC Occ /HPF (0-4) Urine Squamous Epithelial Cells Occ /LPF Urine Bacteria Few /HPF (0-FEW) Test 04/02/17 07:30 White Blood Count 23.8 x10^3/uL (4.0-11.0) Red Blood Count 3.34 x10^6/uL (4.30-5.70) Hemoglobin 10.0 g/dL (13.0-17.5) Hematocrit 29.4 % (39.0-53.0) Mean Corpuscular Volume 88 fL (79-100) Mean Corpuscular Hemoglobin 30 pg (25-35) Mean Corpuscular Hemoglobin Concent 34 g/dL (31-37) Red Cell Distribution Width 14.9 % (11.5-14.5) Platelet Count 137 x10^3/uL (140-400) Neutrophils (%) (Auto) 95 % (31-73) Lymphocytes (%) (Auto) 1 % (24-48) Monocytes (%) (Auto) 4 % (0-9) Eosinophils (%) (Auto) 0 % (0-3) Basophils (%) (Auto) 0 % (0-3) Neutrophils # (Auto) 22.5 x10^3uL (1.8-7.7) Lymphocytes # (Auto) 0.3 x10^3/uL (1.0-4.8) Monocytes # (Auto) 1.0 x10^3/uL (0.0-1.1) Eosinophils # (Auto) 0.0 x10^3/uL (0.0-0.7) Basophils # (Auto) 0.0 x10^3/uL (0.0-0.2) Sodium Level 134 mmol/L (136-145) Potassium Level 3.7 mmol/L (3.5-5.1) Chloride Level 101 mmol/L (98-107) Carbon Dioxide Level 21 mmol/L (21-32) Anion Gap 12 (6-14) Blood Urea Nitrogen 55 mg/dL (8-26) Creatinine 1.9 mg/dL (0.7-1.3) Estimated GFR (Cockcroft-Gault) 35.1 Glucose Level 143 mg/dL (70-99) Calcium Level 7.9 mg/dL (8.5-10.1) Microbiology Micro Microbiology 03/31/17 Blood Culture - Final, Complete Physical Exam HEENT: Neck Supple W Full Motion Chest: Symmetric LUNGS: Other (faint basilar crackles) Heart: RRR (AFIB RVR) Abdomen: Soft N/T Extremities: No Calf Tenderness, Other (2+ bilateral LE pitting edema) Neurology: alert, oriented, follow commands Assessment Assessment 1. AFIB RVR: refractory. 130-180s. asymptomatic at this time. BP at low end 2. Sepsis/bacteremia: strep C BC. ID following 3. Chronic systolic CHF: appears compensated 4. DM2/HLP 5. MELA: likely prerenal witn underlying CKD unknown baseline 6. Hypomagnesemia Recommendations 1. Repeat Dig IV, Metoprolol IV x1 if BP holds. Continue with po metoprolol 2. Discussed risks and benefits for SHILPI CV and agreeable to proceed. Scheduled at 3 PM. Also informed ID. 3. Anticoagulated with eliquis 4. Unfortunately [place] records wont be available as this will need to get mailed. 5. Replace Mg 6. TTE pending 7. IV maintenance fluids while NPO CHAD WORKMAN MEDICAL ADMINISTRATIVE SPECIALIST April 02, 2017 09:53
[2017-04-02] MEDS ORDERED: METOPROLOL TARTRATE 5 MG/5 ML VIAL. IVP ONE (10:00)
[2017-04-02] MEDS ORDERED: MAGNESIUM SULFATE 4GM 100 ML IV ONE (11:30)
[2017-04-02] MEDS: ACETAMINOPHEN 325 MG TABLET. PO PRN ×2 (12:26→19:08)
--- NOTE | 2017-04-02 14:43 | CARD ---
APPROVED REPORT EXAM: Two-dimensional and M-mode echocardiogram with Doppler and color Doppler. Other Information Quality : GoodHR: 94bpm Rhythm : Atrial Fibrillation INDICATION Atrial Fibrillation Congestive Heart Failure Sepsis, RVR RISK FACTORS Obesity 2D DIMENSIONS RVDd3.5 (2.9-3.5cm)Left Atrium(2D)4.5 (1.6-4.0cm) IVSd1.0 (0.7-1.1cm)Aortic Root(2D)3.6 (2.0-3.7cm) LVDd5.1 (3.9-5.9cm)LVOT Diameter2.4 (1.8-2.4cm) PWd0.9 (0.7-1.1cm)LVDs4.4 (2.5-4.0cm) FS (%) 13.3 %SV35.2 ml LVEF(%)28.3 (>50%) Aortic Valve AoV Peak Kunal.135.6cm/sAoV VTI23.3cm AO Peak GR.7.4mmHgLVOT Peak Kunal.127.8cm/s AO Mean GR.4mmHgAVA (VMAX)4.18cm2 Mitral Valve MV E Peak Gr.6mmHgMV E Mean Gr.2mmHg Tricuspid Valve TR P. [id number] Peak Gr.47mmHg Pulmonary Vein S1 Osgwzfls90.3cm/s LEFT VENTRICLE The left ventricle is normal size. There is normal left ventricular wall thickness. Left ventricle sy stolic function is mildly impaired. The Ejection Fraction is 40-45%. There is mild global hypokinesis of the left ventricle. Basal to mid inferior wall is hypokinetic. Septal motion consistent with cond uction defect. Atrial fibrillation, suspect moderate LV dysfunction. No left ventricle thrombus noted on this study. RIGHT VENTRICLE The right ventricle is normal size. There is normal right ventricular wall thickness. The right ventr icular systolic function is normal. ATRIA The left atrium is severely dilated. The right atrium size is normal. The interatrial septum is intac t with no evidence for an atrial septal defect or patent foramen ovale as noted on 2-D or Doppler daniela ging. AORTIC VALVE The aortic valve is mildly sclerotic. The aortic valve is trileaflet. Doppler and Color Flow revealed no significant aortic regurgitation. There is no significant aortic valvular stenosis. MITRAL VALVE Mitral annular calcification is mild. The mitral valve leaflets are thickened. There is no evidence o f mitral valve prolapse. There is no mitral valve stenosis. Doppler and Color Flow revealed trace saray ral regurgitation. TRICUSPID VALVE Doppler and Color Flow revealed mild tricuspid regurgitation. The pulmonary artery systolic pressure is estimated at 50 mmHg. There is moderate pulmonary hypertension. PULMONIC VALVE Doppler and Color Flow revealed no pulmonic valvular regurgitation. There is no pulmonic valvular celine nosis. GREAT VESSELS The aortic root is mildly enlarged. The ascending aorta is normal in size. The IVC is normal in size and collapses >50% with inspiration. PERICARDIAL EFFUSION There is no evidence of significant pericardial effusion. Critical Notification Critical Value: No <Conclusion> Left ventricle systolic function is mildly impaired. The Ejection Fraction is 40-45%. There is mild global hypokinesis of the left ventricle. Basal to mid inferior wall is hypokinetic. Se ptal motion consistent with conduction defect. Atrial fibrillation, suspect moderate LV dysfunction. Doppler and Color Flow revealed mild tricuspid regurgitation. The pulmonary artery systolic pressure is estimated at 50 mmHg. There is moderate pulmonary hypertension.
[2017-04-02] MEDS ORDERED: 0.9 % SODIUM CHLORIDE 10 ML DISP.SYRIN. IV PRN (15:45)
[2017-04-02] MEDS ORDERED: LIDOCAINE 2% VISCOUS 15 ML SOLUTION. MM ONE (15:45)
[2017-04-02] MEDS ORDERED: LIDOCAINE 2% TOPICAL JELLY 5GM TUBE. TP ONE (15:45)
[2017-04-02] MEDS ORDERED: BENZOCAINE ONE 20% MUCOSAL SPRAY. MM (15:45)
[2017-04-02] MEDS: ATORVASTATIN CALCIUM 40 MG TABLET. PO SCH (20:59)
[2017-04-03] VITALS (23 sets, daily range): BP systolic 95–135; BP diastolic 58–83
[2017-04-03] MEDS: PIPERACILLIN/TAZOBACTAM 2.25 GM in IV NORMAL SALINE 50ML 50 ML IV SCH (05:40)
[2017-04-03] MEDS: INSULIN ASPART 300 UNITS/3 ML INSULN.PEN SQ SCH ×7 (07:30→21:00)
--- NOTE | 2017-04-03 08:11 | PDOC ---
Infectious Disease Note Subjective Subjective Feels better. Slept better. Has some RLE pain Chills yesterday afternoon ROS ROS GEN: Denies fevers, chills, sweats HEENT: Denies blurred vision, sore throat CV: Denies chest pain RESP: Denies shortness of air, cough GI: Denies n/v/d NEURO: Denies confusion, dizziness MSK: Denies weakness, joint pain/swelling Vital Sign Vital Signs Vital Signs Date Time Temp Pulse Resp B/P (MAP) Pulse Ox O2 Delivery O2 Flow Rate FiO2 04/03/17 07:00 97 14 115/76 (89) 96 Room Air 04/03/17 04:00 98.7 98.7 Physical Exam PHYSICAL EXAM GENERAL: NAD, Alert, in chair HEENT: PERRL, nml conj. OC/OP- clear NECK: Supple, no JVD, no LN LUNGS: Clear HEART: S1S2, no gallop, no murmur ABD: Soft, NT, no organomegaly, no rebound, obese EXT: No clubbing, no cyanosis. + Charcot changes. RLE with warmth and mild to mod erythema and tenderness - better today. Left second toe with mild discoloration. 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 repeat 04/02 - neg so far cellulitis likely source RLE cellulitis - better Left 2 nd toe discoloration but no gross sign of infection. Hammer toe MELA - better Leukocytosis Right shoulder pain but exam appears benign. Labrum tear DM Afib -RVR - CV today Plan Plan of Care Cont Zosyn for today - await cardioversion then taper 04/04 F/u repeat blood cults F/u labs and cults - adjust abx based on further results CV today JESSICA INFANTE MD April 03, 2017 08:11
--- NOTE | 2017-04-03 08:49 | PDOC ---
PROGRESS NOTES Chief Complaint Chief Complaint Sepsis ASSESSMENT AND PLAN: 1. Sepsis: resolved 2. Bacteremia: beta hemolytic Strep C in blood cult. levaquin and Zosyn, as per ID service. needs echo for r/o endocarditis 3. Cellulitis: improving. prob source of infection 4. MELA: 2/2 hypotension. continues to improve. monitor 5. CKD: baseline unk, but pt aware of mild deficiency 6. CAD, CHF: no acute issues 7. Afib: RVR at admit, prob 2/2 sepsis. now resolved. poss SHILPI/ cardioversion today 8. OAC: on apixiban 9. DM2: well controlled on home regimen. 10. Prophylaxis: PPI, lovenox History of Present Illness History of Present Illness feels better today. no pain. no SOB Vitals Vitals Vital Signs Date Time Temp Pulse Resp B/P (MAP) Pulse Ox O2 Delivery O2 Flow Rate FiO2 04/03/17 07:00 97 14 115/76 (89) 96 Room Air 04/03/17 04:00 98.7 98.7 Physical Exam General: Alert, Cooperative, No acute distress Heart: Regular rate, Other (tachy irreg) Lungs: Clear Abdomen: Normal bowel sounds, Soft, No tenderness Extremities: No edema Skin: No rashes Labs LABS Laboratory Tests Test 04/02/17 12:23 04/02/17 17:45 04/02/17 21:01 Glucose (Fingerstick) 164 mg/dL (70-99) 118 mg/dL (70-99) 163 mg/dL (70-99) Nutrition Consultation Dietary Evaluation: Recommendations by RD: Protein supplementation Comments: Add chocolate boost glucose control TID (250 calories/14 grams protein per serving) Provided an alternate menu for pt to update food preferences Encourage good PO intake Expected Outcomes/Goals: meet 75% estimated nutrition needs Malnutrition Findings: Reduced Bottom Sander Strength: N/A Reduced Bottom Sander Strength (Non-Sev: N/A Malnutrition related to morbid: No Weight Status: Obese Fluid Accumulation (N/A): N/A JOSSELINE BERGMAN MD April 03, 2017 08:49
[2017-04-03] MEDS: METOPROLOL SUCC 24HR ER 100 MG TAB.ER.24H. PO SCH (09:19)
[2017-04-03] MEDS: CHOLECALCIFEROL (VITAMIN D3) 1,000 UNIT TABLET PO SCH (09:19)
[2017-04-03] MEDS: APIXABAN 5 MG TABLET. PO SCH ×2 (09:19→20:34)
[2017-04-03] MEDS: PANTOPRAZOLE 40 MG TABLET.DR. PO SCH (09:20)
[2017-04-03] MEDS: LINAGLIPTIN 5 MG TABLET PO SCH (09:20)
[2017-04-03] MEDS: INSULIN DETEMIR 300 UNITS/3 ML INSULN.PEN. SQ SCH (09:27)
[2017-04-03 09:53] LABS: BASO % 0 % (0-3); EOS % 1 % (0-3); HEMOGLOBIN 9.9 g/dL (13.0-17.5); LYMPH # 0.4 x10^3/uL (1.0-4.8); LYMPH % 3 % (24-48); MEAN CORPUSCULAR HEMOGLOBIN 30 pg (25-35); MEAN CORPUSCULAR HGB CONC 34 g/dL (31-37); MEAN CORPUSCULAR VOLUME 88 fL (79-100); MONO % 5 % (0-9); NEUT % 91 % (31-73); PLATELET COUNT 129 x10^3/uL (140-400); RED BLOOD COUNT 3.29 x10^6/uL (4.30-5.70); RED CELL DISTRIBUTION WIDTH 14.8 % (11.5-14.5); WHITE BLOOD COUNT 15.8 x10^3/uL (4.0-11.0)
[2017-04-03 10:12] LABS: CALCIUM 8.3 mg/dL (8.5-10.1); CREATININE 1.6 mg/dL (0.7-1.3); GFR 42.8; POTASSIUM 4.2 mmol/L (3.5-5.1)
[2017-04-03 10:19] LABS: ALBUMIN 2.1 g/dL (3.4-5.0); ALBUMIN/GLOBULIN RATIO 0.5 (1.0-1.7); TOTAL BILIRUBIN 0.7 mg/dL (0.2-1.0)
[2017-04-03] MEDS ORDERED: LIDOCAINE 2% JELLY 6ML IN APPLICATOR. MM STA (12:53)
[2017-04-03] MEDS ORDERED: PROPOFOL 40 ML IV ONE (12:55)
[2017-04-03] MEDS ORDERED: LIDOCAINE 1% PF 5 ML VIAL. ONE (12:55)
[2017-04-03] MEDS ORDERED: BENZOCAINE ONE 20% MUCOSAL SPRAY. MM ×2 (13:00)
[2017-04-03] MEDS: POTASSIUM CL 20MEQ-0.45% NACL 1,000 ML IV SCH ×2 (15:50→17:36)
[2017-04-03] MEDS: PIPERACILLIN/TAZOBACTAM 3.375 GM in IV NORMAL SALINE 50ML 50 ML IV SCH ×3 (17:32→23:41)
--- NOTE | 2017-04-03 18:16 | CCR ---
DATE OF SERVICE: 04/03/2017 REFERRING PHYSICIAN: Dr. Barfield. PERFORMING PHYSICIAN: Dr. Stover. INDICATIONS: Atrial fibrillation with rapid ventricular response. PROCEDURE DONE: HSILPI-guided cardioversion. COMPLICATIONS: None. DESCRIPTION OF PROCEDURE: An informed consent was obtained from the patient. Transesophageal echocardiogram probe was placed successfully and standard tomographic images were obtained. This ruled out any obvious intracardiac thrombus. The patient was then administered 200 joules of synchronized biphasic DC shock therapy with successful conversion of the patient's rhythm from atrial fibrillation to sinus rhythm. Of note, anesthesiology team induced deep sedation using intravenous propofol throughout the procedure. The patient tolerated the procedure well. There were no immediate complications. CONCLUSIONS: Successful cardioversion of atrial fibrillation to sinus rhythm. MIGUEL ANGEL STOVER MD DR: CANDIE/val JOB#: [id number] / [id number]
[2017-04-03] MEDS: ATORVASTATIN CALCIUM 40 MG TABLET. PO SCH (20:33)
[2017-04-04] VITALS (13 sets, daily range): BP systolic 90–141; BP diastolic 53–85
[2017-04-04] MEDS: POTASSIUM CL 20MEQ-0.45% NACL 1,000 ML IV SCH (02:43)
[2017-04-04 03:51] LABS: BASO % 0 % (0-3); EOS % 1 % (0-3); HEMOGLOBIN 10.1 g/dL (13.0-17.5); LYMPH # 0.4 x10^3/uL (1.0-4.8); LYMPH % 3 % (24-48); MEAN CORPUSCULAR HEMOGLOBIN 30 pg (25-35); MEAN CORPUSCULAR HGB CONC 34 g/dL (31-37); MEAN CORPUSCULAR VOLUME 88 fL (79-100); MONO % 6 % (0-9); NEUT % 89 % (31-73); PLATELET COUNT 136 x10^3/uL (140-400); RED CELL DISTRIBUTION WIDTH 15.2 % (11.5-14.5); WHITE BLOOD COUNT 13.8 x10^3/uL (4.0-11.0)
[2017-04-04 04:08] LABS: CALCIUM 8.4 mg/dL (8.5-10.1); CREATININE 1.7 mg/dL (0.7-1.3); GFR 39.9; POTASSIUM 4.6 mmol/L (3.5-5.1)
[2017-04-04] MEDS: PIPERACILLIN/TAZOBACTAM 3.375 GM in IV NORMAL SALINE 50ML 50 ML IV SCH ×2 (06:55→11:36)
[2017-04-04] MEDS: INSULIN ASPART 300 UNITS/3 ML INSULN.PEN SQ SCH ×7 (07:30→21:00)
[2017-04-04] MEDS: APIXABAN 5 MG TABLET. PO SCH ×2 (07:40→22:05)
[2017-04-04] MEDS: METOPROLOL SUCC 24HR ER 100 MG TAB.ER.24H. PO SCH (07:40)
[2017-04-04] MEDS: ACETAMINOPHEN 325 MG TABLET. PO PRN (07:41)
[2017-04-04] MEDS: CHOLECALCIFEROL (VITAMIN D3) 1,000 UNIT TABLET PO SCH (07:41)
[2017-04-04] MEDS: LINAGLIPTIN 5 MG TABLET PO SCH (07:41)
[2017-04-04] MEDS: INSULIN DETEMIR 300 UNITS/3 ML INSULN.PEN. SQ SCH (07:42)
[2017-04-04] MEDS: PANTOPRAZOLE 40 MG TABLET.DR. PO SCH (07:44)
--- NOTE | 2017-04-04 09:11 | PDOC ---
CARDIOLOGY PROGRESS NOTE SUBJECTIVE: No acute events overnight. Denies any chest pain. More pain in the RLE. OBJECTIVE: Vital SIgns: Vital Signs Date Time Temp Pulse Resp B/P (MAP) Pulse Ox O2 Delivery O2 Flow Rate FiO2 04/04/17 08:00 99.4 73 20 90/66 (74) 97 Room Air 99.4 I & O Intake and Output 04/04/17 07:00 Intake Total 2029 ml Output Total 2800 ml Balance -771 ml Intake Oral 750 ml IV Total 1279 ml Output Urine Total 2800 ml Objective: Gen: A/O x 3. NAD CVS: RRR, no m/r/g. PULM: CTAB ABD: SOft EXT: RLE with edema, erythema and more warmth compared to left. NEURO: Non focal exam. CURRENT MEDICATIONS: Current Medications Medications (Trade) Dose Ordered Sig/Marques Start Time Stop Time Status Last Admin Dose Admin Acetaminophen (Tylenol) 650 mg PRN Q6HRS PRN 04/01/17 01:45 04/04/17 07:41 650 MG Apixaban (Eliquis) 5 mg BID 04/01/17 13:00 04/04/17 07:40 5 MG Atorvastatin Calcium (Lipitor) 40 mg QHS 04/01/17 21:00 04/03/17 20:33 40 MG Benzocaine (Hurricaine One) 3 spray 1X ONCE 04/03/17 13:00 04/03/17 13:01 DC Bisacodyl (Dulcolax Supp) 10 mg 1X ONCE 03/31/17 21:30 03/31/17 21:31 DC 03/31/17 21:38 10 MG Daptomycin 670 mg/ Sodium Chloride 50 ml @ 100 mls/hr ONCE ONCE 04/01/17 10:00 04/01/17 10:29 DC 04/01/17 10:29 100 MLS/HR Dextrose (Dextrose 50%-Water Syringe) 12.5 gm PRN Q15MIN PRN 04/01/17 12:30 Digoxin (Lanoxin) 250 mcg 1X ONCE 04/02/17 10:15 04/02/17 10:16 DC 04/02/17 09:47 250 MCG Diltiazem HCl (Cardizem) 20 mg 1X ONCE 03/31/17 19:15 03/31/17 19:24 DC 03/31/17 19:18 20 MG Diltiazem HCl 125 mg/Dextrose 125 ml @ 0 mls/hr 1X ONCE 03/31/17 19:30 03/31/17 19:31 DC 03/31/17 19:30 5 MLS/HR Enoxaparin Sodium (Lovenox 40mg Syringe) 40 mg Q24H 04/02/17 09:30 UNV Furosemide (Lasix) 20 mg 1X ONCE 03/31/17 21:15 03/31/17 21:16 DC 03/31/17 22:02 20 MG Heparin Sodium (Porcine) 5,000 unit BID 04/01/17 10:30 04/02/17 09:32 DC 04/02/17 09:02 5,000 UNIT Info (Anti-Coagulation Monitoring By Pharmacy) 1 each PRN DAILY PRN 04/02/17 15:45 Insulin Aspart (Novolog) 0-7 UNITS QIDACHS 04/01/17 21:00 Insulin Detemir (Levemir) 60 units DAILY08 04/02/17 08:00 04/04/17 07:42 60 UNITS Levofloxacin/ Dextrose 150 ml @ 100 mls/hr Q48H 04/02/17 21:00 04/02/17 21:00 DC Lidocaine HCl (Glydo (Lidocaine) Jelly) 1 lex 1X STAT 04/03/17 12:53 04/03/17 12:59 DC Lidocaine HCl (Viscous Lidocaine) 15 ml 1X ONCE 04/02/17 15:45 04/02/17 15:46 DC Lidocaine HCl (Xylocaine 2% Topical 5gm Tube) 1 lex 1X ONCE 04/02/17 15:45 04/02/17 15:46 DC Lidocaine HCl (Xylocaine-Mpf 1% Vial) 5 ml STK-MED ONCE 04/03/17 12:55 04/03/17 12:56 DC Linagliptin (Tradjenta) 5 mg DAILY 04/01/17 13:00 04/04/17 07:41 5 MG Magnesium Sulfate/ Dextrose 100 ml @ 25 mls/hr 1X ONCE 04/02/17 11:30 04/02/17 15:29 DC 04/02/17 12:26 25 MLS/HR Metoprolol Succinate (Toprol Xl) 100 mg DAILY 04/01/17 13:00 04/04/17 07:40 100 MG Metoprolol Tartrate (Lopressor) 5 mg 1X ONCE 04/02/17 10:00 04/02/17 10:01 DC Nitroglycerin (Nitrostat) 0.4 mg PRN Q5MIN PRN 03/31/17 20:00 03/31/17 20:03 0.4 MG Norepinephrine Bitartrate 250 ml @ 0 mls/hr CONT PRN 04/01/17 04:00 04/01/17 20:32 3.75 MLS/HR Ondansetron HCl (Zofran) 4 mg 1X ONCE 03/31/17 20:00 03/31/17 20:01 DC 03/31/17 20:01 4 MG Pantoprazole Sodium (Protonix) 40 mg DAILY 04/01/17 12:30 04/04/17 07:44 40 MG Piperacillin Sod/ Tazobactam Sod 2.25 gm/Sodium Chloride 50 ml @ 100 mls/hr Q6HRS 04/01/17 12:00 04/03/17 08:17 DC 04/03/17 05:40 100 MLS/HR Piperacillin Sod/ Tazobactam Sod 3.375 gm/Sodium Chloride 50 ml @ 100 mls/hr Q6HRS 04/03/17 12:00 04/04/17 06:55 100 MLS/HR Potassium Chloride/Sodium Chloride 1,000 ml @ 75 mls/hr [id number] 04/01/17 10:30 04/04/17 02:43 75 MLS/HR Potassium Chloride 100 ml @ 100 mls/hr Q1H 04/01/17 04:30 04/01/17 08:29 DC 04/01/17 08:03 100 MLS/HR Propofol 40 ml @ As Directed STK-MED ONCE 04/03/17 12:55 04/03/17 12:56 DC Sodium Chloride (Normal Saline Flush) 10 ml QSHIFT PRN 04/02/17 15:45 Vitamin D (Vitamin D3) 1,000 unit DAILY 04/01/17 13:00 04/04/17 07:41 1,000 UNIT ASSESSMENT: 1. PAF, s/p CVN into SR. 2. HTN 3. Sepsis from strep 4. RLE edema. Problems: PLAN: 1. Continue eliquis and toprol xl 2. Will plan for RLE DVT scan 3. ID eval pending. 4. Supportive care from CV perspective. Ok to transfer out of ICU Will follow along. STEWART MOLINA MD April 04, 2017 09:11
--- NOTE | 2017-04-04 09:29 | PDOC ---
PROGRESS NOTES Chief Complaint Chief Complaint Sepsis ASSESSMENT AND PLAN: 1. Sepsis: resolved 2. Bacteremia: beta hemolytic Strep C in blood cult. levaquin and Zosyn, as per ID service. SHILPI prelim results neg for vegetations 3. Cellulitis: looks worse today. prob source of infection. US to r/o DVT 4. MELA: 2/2 hypotension. creat plateauing at 1.7, still uremic. cont IVF, monitor 5. CKD: baseline unk, but pt aware of mild deficiency 6. CAD, CHF: no acute issues 7. Afib: RVR at admit. cardioversion on 04/03 successful, now in NSR 8. OAC: on apixiban 9. DM2: well controlled on home regimen. 10. Prophylaxis: PPI,(apixiban) 11. Transfer to medical floor History of Present Illness History of Present Illness feels better today. no pain. no SOB Vitals Vitals Vital Signs Date Time Temp Pulse Resp B/P (MAP) Pulse Ox O2 Delivery O2 Flow Rate FiO2 04/04/17 09:00 88 20 107/58 (74) 97 Room Air 04/04/17 08:00 99.4 99.4 Physical Exam General: Alert, Cooperative, No acute distress Heart: Regular rate, Other (tachy irreg) Lungs: Clear Abdomen: Normal bowel sounds, Soft, No tenderness Extremities: No edema Skin: No rashes Labs LABS Laboratory Tests Test 04/03/17 17:34 04/03/17 20:31 04/04/17 03:00 04/04/17 07:25 Glucose (Fingerstick) 111 mg/dL (70-99) 155 mg/dL (70-99) 115 mg/dL (70-99) White Blood Count 13.8 x10^3/uL (4.0-11.0) Red Blood Count 3.40 x10^6/uL (4.30-5.70) Hemoglobin 10.1 g/dL (13.0-17.5) Hematocrit 30.0 % (39.0-53.0) Mean Corpuscular Volume 88 fL (79-100) Mean Corpuscular Hemoglobin 30 pg (25-35) Mean Corpuscular Hemoglobin Concent 34 g/dL (31-37) Red Cell Distribution Width 15.2 % (11.5-14.5) Platelet Count 136 x10^3/uL (140-400) Neutrophils (%) (Auto) 89 % (31-73) Lymphocytes (%) (Auto) 3 % (24-48) Monocytes (%) (Auto) 6 % (0-9) Eosinophils (%) (Auto) 1 % (0-3) Basophils (%) (Auto) 0 % (0-3) Neutrophils # (Auto) 12.4 x10^3uL (1.8-7.7) Lymphocytes # (Auto) 0.4 x10^3/uL (1.0-4.8) Monocytes # (Auto) 0.9 x10^3/uL (0.0-1.1) Eosinophils # (Auto) 0.1 x10^3/uL (0.0-0.7) Basophils # (Auto) 0.0 x10^3/uL (0.0-0.2) Sodium Level 135 mmol/L (136-145) Potassium Level 4.6 mmol/L (3.5-5.1) Chloride Level 104 mmol/L (98-107) Carbon Dioxide Level 25 mmol/L (21-32) Anion Gap 6 (6-14) Blood Urea Nitrogen 43 mg/dL (8-26) Creatinine 1.7 mg/dL (0.7-1.3) Estimated GFR (Cockcroft-Gault) 39.9 Glucose Level 135 mg/dL (70-99) Calcium Level 8.4 mg/dL (8.5-10.1) Nutrition Consultation Dietary Evaluation: Recommendations by RD: Protein supplementation Comments: Add chocolate boost glucose control TID (250 calories/14 grams protein per serving) Provided an alternate menu for pt to update food preferences Encourage good PO intake Expected Outcomes/Goals: meet 75% estimated nutrition needs Malnutrition Findings: Reduced Scratcher Tender Strength: N/A Reduced Scratcher Tender Strength (Non-Sev: N/A Malnutrition related to morbid: No Weight Status: Obese Fluid Accumulation (N/A): N/A JOSSELINE BERGMAN MD April 04, 2017 09:29
--- NOTE | 2017-04-04 09:41 | PDOC ---
Infectious Disease Note Subjective Subjective Feeling better this morning, more relaxed c/o RLE pain with touch and looks little more red ROS ROS GEN: Denies fevers, chills, sweats CV: Denies chest pain RESP: Denies shortness of air, cough GI: Denies n/v/d Vital Sign Vital Signs Vital Signs Date Time Temp Pulse Resp B/P (MAP) Pulse Ox O2 Delivery O2 Flow Rate FiO2 04/04/17 09:00 88 20 107/58 (74) 97 Room Air 04/04/17 08:00 99.4 99.4 Physical Exam PHYSICAL EXAM GENERAL: Propped up in bed, alert, relaxed appearance HEENT: PERRL, nml conj. OC/OP- clear NECK: Supple, no LN LUNGS: Clear HEART: S1S2, no gallop, no murmur ABD: Obese, BS present, soft, NT EXT: + Charcot changes. RLE swelling, erythematous, warm and mildly tender. Left second toe with mild discoloration. 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 x 3, no focal neurologic deficit SKIN: No rash IVs: ok Labs Lab Laboratory Tests Test 04/03/17 17:34 04/03/17 20:31 04/04/17 03:00 04/04/17 07:25 Glucose (Fingerstick) 111 mg/dL (70-99) 155 mg/dL (70-99) 115 mg/dL (70-99) White Blood Count 13.8 x10^3/uL (4.0-11.0) Red Blood Count 3.40 x10^6/uL (4.30-5.70) Hemoglobin 10.1 g/dL (13.0-17.5) Hematocrit 30.0 % (39.0-53.0) Mean Corpuscular Volume 88 fL (79-100) Mean Corpuscular Hemoglobin 30 pg (25-35) Mean Corpuscular Hemoglobin Concent 34 g/dL (31-37) Red Cell Distribution Width 15.2 % (11.5-14.5) Platelet Count 136 x10^3/uL (140-400) Neutrophils (%) (Auto) 89 % (31-73) Lymphocytes (%) (Auto) 3 % (24-48) Monocytes (%) (Auto) 6 % (0-9) Eosinophils (%) (Auto) 1 % (0-3) Basophils (%) (Auto) 0 % (0-3) Neutrophils # (Auto) 12.4 x10^3uL (1.8-7.7) Lymphocytes # (Auto) 0.4 x10^3/uL (1.0-4.8) Monocytes # (Auto) 0.9 x10^3/uL (0.0-1.1) Eosinophils # (Auto) 0.1 x10^3/uL (0.0-0.7) Basophils # (Auto) 0.0 x10^3/uL (0.0-0.2) Sodium Level 135 mmol/L (136-145) Potassium Level 4.6 mmol/L (3.5-5.1) Chloride Level 104 mmol/L (98-107) Carbon Dioxide Level 25 mmol/L (21-32) Anion Gap 6 (6-14) Blood Urea Nitrogen 43 mg/dL (8-26) Creatinine 1.7 mg/dL (0.7-1.3) Estimated GFR (Cockcroft-Gault) 39.9 Glucose Level 135 mg/dL (70-99) Calcium Level 8.4 mg/dL (8.5-10.1) Micro 04/02. BLOOD CULTURE Preliminary NO GROWTH AFTER 2 DAYS Objective Assessment Strep C sepsis - POA 03/31. repeat 04/02 - neg so far cellulitis likely source RLE cellulitis Left 2 nd toe discoloration but no gross sign of infection. Hammer toe MELA - better Leukocytosis Right shoulder pain but exam appears benign. Labrum tear DM Afib -RVR s/p cardioversion Plan Plan of Care Cont Zosyn de-escalate soon F/u labs and cults Leg elevation Patient seen and examined. Chart reviewed in detail. Case discussed with WELT WHEELER. Agree with above plan. Please descalate to Rocephin q day. Add Clindamycin 300mg PO TID x 5d for toxin migration arrest DUKE SMITH APRN April 04, 2017 09:41 JOEY NUÑEZ MD April 04, 2017 14:28
--- NOTE | 2017-04-04 12:00 | RAD ---
APPROVED REPORT Right Lower Extremity Venous Study for DVT Patient Location: IN-PATIENT Indications Lower Extremity Pain: Right Lower Extremity Edema: Right Vein Imaging (Right) CFV (R): Compressible SFJ (R): Compressible FEM (R): Compressible POP (R): Compressible DFV (R): Compressible PTV (R): Spontaneous GSV (R): Spontaneous Peroneals (R): Spontaneous Doppler Evaluation (Right) CFV (R): Spontaneous POP (R):Spontaneous Findings Nash scale images of the RLE veins was obtained. CFV, SFV and popliteal veins appear to be fully compressible. The mid portion of the SFV was not well visualized. The below knee veins demonstrate spontaneous flow. Spectral wave forms and color doppler do not demonstrate any evidence of obstruction to venous flow. Critical Notification Critical Value: No <Conclusion> Negative for DVT in the RLE.
[2017-04-04] MEDS: CLINDAMYCIN HCL 150 MG CAPSULE. PO SCH ×2 (15:21→22:05)
[2017-04-04] MEDS: ATORVASTATIN CALCIUM 40 MG TABLET. PO SCH (22:04)
[2017-04-04] MEDS: HYDROcodone/APAP 5/325MG 1 TAB TABLET PO PRN (22:05)
[2017-04-05 03:35] VITALS: BP 109/67
[2017-04-05 05:39] LABS: BASO % 0 % (0-3); EOS % 1 % (0-3); HEMATOCRIT 26.6 % (39.0-53.0); HEMOGLOBIN 9.2 g/dL (13.0-17.5); LYMPH # 0.6 x10^3/uL (1.0-4.8); LYMPH % 5 % (24-48); MEAN CORPUSCULAR HEMOGLOBIN 30 pg (25-35); MEAN CORPUSCULAR HGB CONC 35 g/dL (31-37); MEAN CORPUSCULAR VOLUME 87 fL (79-100); MONO % 11 % (0-9); NEUT % 83 % (31-73); PLATELET COUNT 119 x10^3/uL (140-400); RED BLOOD COUNT 3.05 x10^6/uL (4.30-5.70); RED CELL DISTRIBUTION WIDTH 14.8 % (11.5-14.5); WHITE BLOOD COUNT 12.2 x10^3/uL (4.0-11.0)
[2017-04-05 05:58] LABS: CALCIUM 8.7 mg/dL (8.5-10.1); CREATININE 1.6 mg/dL (0.7-1.3); GFR 42.8; POTASSIUM 4.2 mmol/L (3.5-5.1)
[2017-04-05 07:30] VITALS: BP 116/68
[2017-04-05] MEDS: INSULIN ASPART 300 UNITS/3 ML INSULN.PEN SQ SCH ×7 (07:30→20:53)
--- NOTE | 2017-04-05 08:38 | PDOC ---
Infectious Disease Note Subjective Subjective Transferred to floor Denies increase redness or discomfort ROS ROS GEN: Denies fevers, chills, sweats CV: Denies chest pain RESP: Denies shortness of air, cough GI: Denies n/v/d NEURO: Denies confusion, dizziness Vital Sign Vital Signs Vital Signs Date Time Temp Pulse Resp B/P (MAP) Pulse Ox O2 Delivery O2 Flow Rate FiO2 04/05/17 07:30 98.6 81 19 116/68 (84) 91 Room Air 98.6 Physical Exam PHYSICAL EXAM GENERAL: Up in the recliner, relaxed appearance HEENT: PERRL, nml conj. OC/OP- clear NECK: Supple, no LN LUNGS: Clear HEART: S1S2, no gallop, no murmur ABD: Obese, BS present, soft, NT EXT: + Charcot changes. RLE swelling, erythematous, warm-stable Left second toe with mild discoloration. 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, no focal neurologic deficit SKIN: No rash IVs: ok Labs Lab Laboratory Tests Test 04/04/17 11:25 04/04/17 16:59 04/04/17 21:54 04/05/17 05:05 Glucose (Fingerstick) 149 mg/dL (70-99) 157 mg/dL (70-99) 179 mg/dL (70-99) White Blood Count 12.2 x10^3/uL (4.0-11.0) Red Blood Count 3.05 x10^6/uL (4.30-5.70) Hemoglobin 9.2 g/dL (13.0-17.5) Hematocrit 26.6 % (39.0-53.0) Mean Corpuscular Volume 87 fL (79-100) Mean Corpuscular Hemoglobin 30 pg (25-35) Mean Corpuscular Hemoglobin Concent 35 g/dL (31-37) Red Cell Distribution Width 14.8 % (11.5-14.5) Platelet Count 119 x10^3/uL (140-400) Neutrophils (%) (Auto) 83 % (31-73) Lymphocytes (%) (Auto) 5 % (24-48) Monocytes (%) (Auto) 11 % (0-9) Eosinophils (%) (Auto) 1 % (0-3) Basophils (%) (Auto) 0 % (0-3) Neutrophils # (Auto) 10.2 x10^3uL (1.8-7.7) Lymphocytes # (Auto) 0.6 x10^3/uL (1.0-4.8) Monocytes # (Auto) 1.4 x10^3/uL (0.0-1.1) Eosinophils # (Auto) 0.1 x10^3/uL (0.0-0.7) Basophils # (Auto) 0.0 x10^3/uL (0.0-0.2) Sodium Level 134 mmol/L (136-145) Potassium Level 4.2 mmol/L (3.5-5.1) Chloride Level 102 mmol/L (98-107) Carbon Dioxide Level 22 mmol/L (21-32) Anion Gap 10 (6-14) Blood Urea Nitrogen 44 mg/dL (8-26) Creatinine 1.6 mg/dL (0.7-1.3) Estimated GFR (Cockcroft-Gault) 42.8 Glucose Level 167 mg/dL (70-99) Calcium Level 8.7 mg/dL (8.5-10.1) Test 04/05/17 08:19 Glucose (Fingerstick) 126 mg/dL (70-99) Micro 04/02. BLOOD CULTURE Preliminary NO GROWTH AFTER 3 DAYS Objective Assessment Strep C sepsis - POA 03/31. repeat 04/02 - neg so far cellulitis likely source RLE cellulitis Left 2 nd toe discoloration but no gross sign of infection. Hammer toe MELA - better Leukocytosis Right shoulder pain but exam appears benign. Labrum tear DM Afib -RVR s/p cardioversion Plan Plan of Care Rocephin. Clindamycin x 5 days for toxin migration arrest F/u labs and cults Leg elevation Patient seen and examined. Chart reviewed. Case discussed with DIRECTOR LEARNING AND DEVELOPMENT. Agree with above plan DUKE SMITH APRN April 05, 2017 08:38 JOEY NUÑEZ MD April 05, 2017 16:14
[2017-04-05] MEDS: CLINDAMYCIN HCL 150 MG CAPSULE. PO SCH ×3 (08:59→20:53)
[2017-04-05] MEDS: LINAGLIPTIN 5 MG TABLET PO SCH (09:00)
[2017-04-05] MEDS: CHOLECALCIFEROL (VITAMIN D3) 1,000 UNIT TABLET PO SCH (09:00)
[2017-04-05] MEDS: APIXABAN 5 MG TABLET. PO SCH ×2 (09:00→20:53)
[2017-04-05] MEDS: PANTOPRAZOLE 40 MG TABLET.DR. PO SCH (09:00)
[2017-04-05] MEDS: METOPROLOL SUCC 24HR ER 100 MG TAB.ER.24H. PO SCH (09:00)
[2017-04-05] MEDS: INSULIN DETEMIR 300 UNITS/3 ML INSULN.PEN. SQ SCH (09:14)
--- NOTE | 2017-04-05 10:02 | PDOC ---
CARDIOLOGY PROGRESS NOTE SUBJECTIVE: No acute events overnight. Denies any chest pain, does have some mild dyspnea. OBJECTIVE: Vital SIgns: Vital Signs Date Time Temp Pulse Resp B/P (MAP) Pulse Ox O2 Delivery O2 Flow Rate FiO2 04/05/17 09:00 86 116/68 04/05/17 07:30 98.6 19 91 Room Air 98.6 I & O Intake and Output 04/05/17 07:00 Intake Total 1770 ml Output Total 1050 ml Balance 720 ml Intake Oral 1020 ml IV Total 750 ml Output Urine Total 1050 ml # Bowel Movements 1 Objective: Gen: A/O x3. NAD CVS: RRR, PAC's noted PULM: Decreased breath sounds throughout both lung mason. ABd: soft, obese, NT/ND EXT: Persistent RLE edema/erythema. CURRENT MEDICATIONS: Current Medications Medications (Trade) Dose Ordered Sig/Marques Start Time Stop Time Status Last Admin Dose Admin Acetaminophen (Tylenol) 650 mg PRN Q6HRS PRN 04/01/17 01:45 04/04/17 07:41 650 MG Acetaminophen/ Hydrocodone Bitart (Lortab 5/325) 1 tab PRN Q6HRS PRN 04/04/17 22:00 04/04/17 22:05 1 TAB Apixaban (Eliquis) 5 mg BID 04/01/17 13:00 04/05/17 09:00 5 MG Atorvastatin Calcium (Lipitor) 40 mg QHS 04/01/17 21:00 04/04/17 22:04 40 MG Benzocaine (Hurricaine One) 3 spray 1X ONCE 04/03/17 13:00 04/03/17 13:01 DC Bisacodyl (Dulcolax Supp) 10 mg 1X ONCE 03/31/17 21:30 03/31/17 21:31 DC 03/31/17 21:38 10 MG Ceftriaxone Sodium 2 gm/ Sodium Chloride 100 ml @ 200 mls/hr Q24H 04/04/17 15:00 04/04/17 15:21 200 MLS/HR Clindamycin HCl (Cleocin) 150 mg TID 04/04/17 15:00 04/05/17 08:59 150 MG Daptomycin 670 mg/ Sodium Chloride 50 ml @ 100 mls/hr ONCE ONCE 04/01/17 10:00 04/01/17 10:29 DC 04/01/17 10:29 100 MLS/HR Dextrose (Dextrose 50%-Water Syringe) 12.5 gm PRN Q15MIN PRN 04/01/17 12:30 Digoxin (Lanoxin) 250 mcg 1X ONCE 04/02/17 10:15 04/02/17 10:16 DC 04/02/17 09:47 250 MCG Diltiazem HCl (Cardizem) 20 mg 1X ONCE 03/31/17 19:15 03/31/17 19:24 DC 03/31/17 19:18 20 MG Diltiazem HCl 125 mg/Dextrose 125 ml @ 0 mls/hr 1X ONCE 03/31/17 19:30 03/31/17 19:31 DC 03/31/17 19:30 5 MLS/HR Enoxaparin Sodium (Lovenox 40mg Syringe) 40 mg Q24H 04/02/17 09:30 UNV Furosemide (Lasix) 20 mg 1X ONCE 03/31/17 21:15 03/31/17 21:16 DC 03/31/17 22:02 20 MG Heparin Sodium (Porcine) 5,000 unit BID 04/01/17 10:30 04/02/17 09:32 DC 04/02/17 09:02 5,000 UNIT Info (Anti-Coagulation Monitoring By Pharmacy) 1 each PRN DAILY PRN 04/02/17 15:45 Insulin Aspart (Novolog) 0-7 UNITS QIDACHS 04/01/17 21:00 Insulin Detemir (Levemir) 60 units DAILY08 04/02/17 08:00 04/05/17 09:14 60 UNITS Levofloxacin/ Dextrose 150 ml @ 100 mls/hr Q48H 04/02/17 21:00 04/02/17 21:00 DC Lidocaine HCl (Glydo (Lidocaine) Jelly) 1 lex 1X STAT 04/03/17 12:53 04/03/17 12:59 DC Lidocaine HCl (Viscous Lidocaine) 15 ml 1X ONCE 04/02/17 15:45 04/02/17 15:46 DC Lidocaine HCl (Xylocaine 2% Topical 5gm Tube) 1 lex 1X ONCE 04/02/17 15:45 04/02/17 15:46 DC Lidocaine HCl (Xylocaine-Mpf 1% Vial) 5 ml STK-MED ONCE 04/03/17 12:55 04/03/17 12:56 DC Linagliptin (Tradjenta) 5 mg DAILY 04/01/17 13:00 04/05/17 09:00 5 MG Magnesium Sulfate/ Dextrose 100 ml @ 25 mls/hr 1X ONCE 04/02/17 11:30 04/02/17 15:29 DC 04/02/17 12:26 25 MLS/HR Metoprolol Succinate (Toprol Xl) 100 mg DAILY 04/01/17 13:00 04/05/17 09:00 100 MG Metoprolol Tartrate (Lopressor) 5 mg 1X ONCE 04/02/17 10:00 04/02/17 10:01 DC Nitroglycerin (Nitrostat) 0.4 mg PRN Q5MIN PRN 03/31/17 20:00 03/31/17 20:03 0.4 MG Norepinephrine Bitartrate 250 ml @ 0 mls/hr CONT PRN 04/01/17 04:00 04/05/17 01:47 DC 04/01/17 20:32 3.75 MLS/HR Ondansetron HCl (Zofran) 4 mg 1X ONCE 03/31/17 20:00 03/31/17 20:01 DC 03/31/17 20:01 4 MG Pantoprazole Sodium (Protonix) 40 mg DAILY 04/01/17 12:30 04/05/17 09:00 40 MG Piperacillin Sod/ Tazobactam Sod 2.25 gm/Sodium Chloride 50 ml @ 100 mls/hr Q6HRS 04/01/17 12:00 04/03/17 08:17 DC 04/03/17 05:40 100 MLS/HR Piperacillin Sod/ Tazobactam Sod 3.375 gm/Sodium Chloride 50 ml @ 100 mls/hr Q6HRS 04/03/17 12:00 04/04/17 14:31 DC 04/04/17 11:36 100 MLS/HR Potassium Chloride/Sodium Chloride 1,000 ml @ 75 mls/hr [id number] 04/01/17 10:30 04/04/17 19:35 DC 04/04/17 02:43 75 MLS/HR Potassium Chloride 100 ml @ 100 mls/hr Q1H 04/01/17 04:30 04/01/17 08:29 DC 04/01/17 08:03 100 MLS/HR Propofol 40 ml @ As Directed STK-MED ONCE 04/03/17 12:55 04/03/17 12:56 DC Sodium Chloride (Normal Saline Flush) 10 ml QSHIFT PRN 04/02/17 15:45 Vitamin D (Vitamin D3) 1,000 unit DAILY 04/01/17 13:00 04/05/17 09:00 1,000 UNIT DIAGNOSTIC TESTING: Hgb 9.2, WBC 12.2, Cr 1.6 (down from 2.0) ASSESSMENT: 1. Afib with RVR s/p CVN to SR. 2. CAD 3. HTN Problems: PLAN: 1. Continue Toprol XL, Atorvastatin and eliquis 2. Add low dose lasix and ASA 81mg daily 3. Supportive care. 4. f/u with primary host/hostess ground in [place] for routine eval. No further ischemic testing necessary. Thanks for consult. STEWART MOLINA MD April 05, 2017 10:02
[2017-04-05] MEDS: ASPIRIN ENTERIC COATED 81 MG TABLET.DR. PO SCH (10:17)
[2017-04-05] MEDS: HYDROcodone/APAP 5/325MG 1 TAB TABLET PO PRN (10:18)
[2017-04-05] MEDS ORDERED: FUROSEMIDE 20 MG/2 ML VIAL. IVP ONE (10:30)
[2017-04-05 11:19] VITALS: BP 112/63
[2017-04-05 14:44] VITALS: BP 114/67
--- NOTE | 2017-04-05 17:39 | PDOC ---
PROGRESS NOTES Chief Complaint Chief Complaint Sepsis ASSESSMENT AND PLAN: 1. Sepsis: resolved 2. Bacteremia: beta hemolytic Strep C in blood cult. levaquin and Zosyn, as per ID service. SHILPI neg for vegetations 3. Cellulitis: sl better. prob source of infection. US neg for DVT 4. MELA: 2/2 hypotension. creat leveling off, suspect baseline. d/c IVF 5. CKD: baseline unk, but pt aware of mild deficiency 6. CAD, CHF: no acute issues. ? fluid overload after fluid resuscitation: PRN lasix 7. Afib: RVR at admit. cardioversion on 04/03 successful, but now back in afib. cardiology service following 8. OAC: on apixiban 9. DM2: well controlled on home regimen. 10. Prophylaxis: PPI,(apixiban) 11. Transfer to medical floor History of Present Illness History of Present Illness no SOB, no cough. leg painful Vitals Vitals Vital Signs Date Time Temp Pulse Resp B/P (MAP) Pulse Ox O2 Delivery O2 Flow Rate FiO2 04/05/17 14:44 97.3 65 19 114/67 (83) 95 Room Air 97.3 04/05/17 08:00 2.0 Physical Exam General: Alert, Cooperative, No acute distress Heart: Other (irreg, irreg) Lungs: Clear Abdomen: Normal bowel sounds, Soft, No tenderness Extremities: No edema Skin: No rashes Labs LABS Laboratory Tests Test 04/04/17 21:54 04/05/17 05:05 04/05/17 08:19 Glucose (Fingerstick) 179 mg/dL (70-99) 126 mg/dL (70-99) White Blood Count 12.2 x10^3/uL (4.0-11.0) Red Blood Count 3.05 x10^6/uL (4.30-5.70) Hemoglobin 9.2 g/dL (13.0-17.5) Hematocrit 26.6 % (39.0-53.0) Mean Corpuscular Volume 87 fL (79-100) Mean Corpuscular Hemoglobin 30 pg (25-35) Mean Corpuscular Hemoglobin Concent 35 g/dL (31-37) Red Cell Distribution Width 14.8 % (11.5-14.5) Platelet Count 119 x10^3/uL (140-400) Neutrophils (%) (Auto) 83 % (31-73) Lymphocytes (%) (Auto) 5 % (24-48) Monocytes (%) (Auto) 11 % (0-9) Eosinophils (%) (Auto) 1 % (0-3) Basophils (%) (Auto) 0 % (0-3) Neutrophils # (Auto) 10.2 x10^3uL (1.8-7.7) Lymphocytes # (Auto) 0.6 x10^3/uL (1.0-4.8) Monocytes # (Auto) 1.4 x10^3/uL (0.0-1.1) Eosinophils # (Auto) 0.1 x10^3/uL (0.0-0.7) Basophils # (Auto) 0.0 x10^3/uL (0.0-0.2) Sodium Level 134 mmol/L (136-145) Potassium Level 4.2 mmol/L (3.5-5.1) Chloride Level 102 mmol/L (98-107) Carbon Dioxide Level 22 mmol/L (21-32) Anion Gap 10 (6-14) Blood Urea Nitrogen 44 mg/dL (8-26) Creatinine 1.6 mg/dL (0.7-1.3) Estimated GFR (Cockcroft-Gault) 42.8 Glucose Level 167 mg/dL (70-99) Calcium Level 8.7 mg/dL (8.5-10.1) Nutrition Consultation Dietary Evaluation: Recommendations by RD: Protein supplementation Comments: Add chocolate boost glucose control TID (250 calories/14 grams protein per serving) Provided an alternate menu for pt to update food preferences Encourage good PO intake Expected Outcomes/Goals: meet 75% estimated nutrition needs Malnutrition Findings: Reduced Information Assurance Engineer Strength: N/A Reduced Information Assurance Engineer Strength (Non-Sev: N/A Malnutrition related to morbid: No Weight Status: Obese Fluid Accumulation (N/A): N/A JOSSELINE BERGMAN MD April 05, 2017 17:39
[2017-04-05 19:50] VITALS: BP 117/59
[2017-04-05] MEDS: ATORVASTATIN CALCIUM 40 MG TABLET. PO SCH (20:53)
[2017-04-05 23:05] VITALS: BP 108/68
[2017-04-06 03:00] VITALS: BP 123/88
[2017-04-06 05:17] LABS: BASO % 0 % (0-3); EOS % 2 % (0-3); HEMATOCRIT 27.9 % (39.0-53.0); HEMOGLOBIN 9.7 g/dL (13.0-17.5); LYMPH # 0.7 x10^3/uL (1.0-4.8); LYMPH % 6 % (24-48); MEAN CORPUSCULAR HEMOGLOBIN 30 pg (25-35); MEAN CORPUSCULAR HGB CONC 35 g/dL (31-37); MEAN CORPUSCULAR VOLUME 87 fL (79-100); MONO % 9 % (0-9); NEUT % 82 % (31-73); PLATELET COUNT 129 x10^3/uL (140-400); RED BLOOD COUNT 3.21 x10^6/uL (4.30-5.70); RED CELL DISTRIBUTION WIDTH 14.8 % (11.5-14.5); WHITE BLOOD COUNT 11.4 x10^3/uL (4.0-11.0)
[2017-04-06 05:36] LABS: CREATININE 1.6 mg/dL (0.7-1.3); GFR 42.8; POTASSIUM 4.1 mmol/L (3.5-5.1)
[2017-04-06 07:00] VITALS: BP 119/61
[2017-04-06] MEDS: INSULIN ASPART 300 UNITS/3 ML INSULN.PEN SQ SCH ×7 (07:30→21:00)
--- NOTE | 2017-04-06 07:59 | PDOC ---
Infectious Disease Note Subjective Subjective Denies increase redness or discomfort. doing ok. Pain improving ROS ROS GEN: Denies fevers, chills, sweats HEENT: Denies blurred vision, sore throat CV: Denies chest pain RESP: Denies shortness of air, cough GI: Denies n/v/d NEURO: Denies confusion, dizziness MSK: Denies weakness, joint pain/swelling Vital Sign Vital Signs Vital Signs Date Time Temp Pulse Resp B/P (MAP) Pulse Ox O2 Delivery O2 Flow Rate FiO2 04/06/17 03:00 99.2 80 18 123/88 (100) 98 Room Air 99.2 04/05/17 08:00 2.0 Physical Exam PHYSICAL EXAM GENERAL: NAD, in bed relaxed appearance HEENT: PERRL, nml conj. OC/OP- clear NECK: Supple, no LN LUNGS: Clear HEART: S1S2, no gallop, no murmur ABD: Obese, BS present, soft, NT EXT: + Charcot changes. RLE trace swelling, mild erythematous, warm-stable. Min tenderness Left second toe with mild discoloration. hammer DIRECTOR OF SERVICES: Alert, oriented x 3, no focal neurologic deficit SKIN: No rash IVs: ok Labs Lab Laboratory Tests Test 04/05/17 08:19 04/05/17 17:33 04/06/17 04:45 Glucose (Fingerstick) 126 mg/dL (70-99) 177 mg/dL (70-99) White Blood Count 11.4 x10^3/uL (4.0-11.0) Red Blood Count 3.21 x10^6/uL (4.30-5.70) Hemoglobin 9.7 g/dL (13.0-17.5) Hematocrit 27.9 % (39.0-53.0) Mean Corpuscular Volume 87 fL (79-100) Mean Corpuscular Hemoglobin 30 pg (25-35) Mean Corpuscular Hemoglobin Concent 35 g/dL (31-37) Red Cell Distribution Width 14.8 % (11.5-14.5) Platelet Count 129 x10^3/uL (140-400) Neutrophils (%) (Auto) 82 % (31-73) Lymphocytes (%) (Auto) 6 % (24-48) Monocytes (%) (Auto) 9 % (0-9) Eosinophils (%) (Auto) 2 % (0-3) Basophils (%) (Auto) 0 % (0-3) Neutrophils # (Auto) 9.4 x10^3uL (1.8-7.7) Lymphocytes # (Auto) 0.7 x10^3/uL (1.0-4.8) Monocytes # (Auto) 1.0 x10^3/uL (0.0-1.1) Eosinophils # (Auto) 0.2 x10^3/uL (0.0-0.7) Basophils # (Auto) 0.0 x10^3/uL (0.0-0.2) Sodium Level 135 mmol/L (136-145) Potassium Level 4.1 mmol/L (3.5-5.1) Chloride Level 102 mmol/L (98-107) Carbon Dioxide Level 22 mmol/L (21-32) Anion Gap 11 (6-14) Blood Urea Nitrogen 46 mg/dL (8-26) Creatinine 1.6 mg/dL (0.7-1.3) Estimated GFR (Cockcroft-Gault) 42.8 Glucose Level 191 mg/dL (70-99) Calcium Level 9.0 mg/dL (8.5-10.1) Objective Assessment Strep C sepsis - POA 03/31. repeat 04/02 - neg so far cellulitis likely source RLE cellulitis - better Left 2 nd toe discoloration but no gross sign of infection. Hammer toe MELA - better Leukocytosis - better Right shoulder pain but exam appears benign. Labrum tear DM Afib Plan Plan of Care Rocephin. to po soon Clindamycin to 300 mg. will d/c after today Tubigrip F/u labs and cults Leg elevation JESSICA INFANTE MD April 06, 2017 07:59
[2017-04-06] MEDS: APIXABAN 5 MG TABLET. PO SCH ×2 (09:01→21:15)
[2017-04-06] MEDS: METOPROLOL SUCC 24HR ER 100 MG TAB.ER.24H. PO SCH (09:02)
[2017-04-06] MEDS: PANTOPRAZOLE 40 MG TABLET.DR. PO SCH (09:02)
[2017-04-06] MEDS: CHOLECALCIFEROL (VITAMIN D3) 1,000 UNIT TABLET PO SCH (09:02)
[2017-04-06] MEDS: ASPIRIN ENTERIC COATED 81 MG TABLET.DR. PO SCH (09:02)
[2017-04-06] MEDS: CLINDAMYCIN HCL 150 MG CAPSULE. PO SCH ×3 (09:05→21:28)
[2017-04-06] MEDS: LINAGLIPTIN 5 MG TABLET PO SCH (09:05)
[2017-04-06] MEDS: FUROSEMIDE 20 MG TABLET PO SCH (09:05)
[2017-04-06] MEDS: INSULIN DETEMIR 300 UNITS/3 ML INSULN.PEN. SQ SCH (09:15)
[2017-04-06] MEDS: LACTOBACILLUS ACIDOPH & BULGAR 1 TABLET. PO SCH ×3 (09:17→18:33)
--- NOTE | 2017-04-06 09:28 | CARD ---
APPROVED REPORT EXAM: Two-dimensional and M-mode echocardiogram with Doppler and color Doppler. INDICATION Atrial Fibrillation Congestive Heart Failure RISK FACTORS Obesity Reason For Test : A Fib PROCEDURE After obtaining informed consent, patient underwent transesophageal echo in the ICU. Type of Sedation : Conscious Sedation Sedation was provided by anesthesiologist, see EMR for medications administered. Sedation was achieved with Propofol intravenously. Transesophageal probe was inserted and advanced into esophagus by Soren Stover MD. The SHILPI was performed without complications. Synchronized Cardioversion attempted: successful Rhythm following Synchronized Cardioversion: normal sinus rhythm Throughout the procedure, the blood pressure, pulse oximetry, cardiac rhythm, and rate were monitored . The patient tolerated the procedure without adverse effects. Recovery from conscious sedation was une ventful and vital signs were stable. LEFT VENTRICLE The left ventricle is normal size. There is normal left ventricular wall thickness. Left ventricle sy stolic function is mildly impaired. The Ejection Fraction is 40-45%. There is global hypokinesis of t he left ventricle. Basal and mid inferior wall hypokinesis.Septal motion consistent with conductionde fect. No left ventricle thrombus noted on this study. RIGHT VENTRICLE The right ventricle is normal size. There is normal right ventricular wall thickness. The right ventr icular systolic function is normal. ATRIA The left atrium is severely dilated. The interatrial septum is intact with no evidence for an atrial septal defect or patent foramen ovale as noted on 2-D or Doppler imaging. AORTIC VALVE The aortic valve is mildly sclerotic. The aortic valve is trileaflet. Doppler and Color Flow revealed no significant aortic regurgitation. There is no significant aortic valvular stenosis. MITRAL VALVE Mitral annular calcification is mild. The mitral valve leaflets are thickened. There is no evidence o f mitral valve prolapse. There is no mitral valve stenosis. Doppler and Color Flow revealed trace saray ral regurgitation. TRICUSPID VALVE Doppler and Color Flow revealed mild tricuspid regurgitation. The pulmonary artery systolic pressure is estimated at 50 mmHg. There is moderate pulmonary hypertension. PULMONIC VALVE Doppler and Color Flow revealed no pulmonic valvular regurgitation. There is no pulmonic valvular celine nosis. GREAT VESSELS The aortic root is mildly enlarged. The ascending aorta is normal in size. The pulmonary is not well visualized. The IVC is normal in size and collapses >50% with inspiration. PERICARDIAL EFFUSION There is no evidence of significant pericardial effusion. Critical Notification Critical Value: No <Conclusion> Left ventricle systolic function is mildly impaired. The Ejection Fraction is 40-45%. Trace mitral regurgitation. Mild tricuspid regurgitation. There is no evidence of significant pericardial effusion. No intracardiac thrombus.
--- NOTE | 2017-04-06 10:46 | PDOC ---
CELE ESTRADA RAM CAR OPERATOR 04/06/17 1046: CARDIO Progress Notes Date and Time Date of Service 04/06/17 Time of Evaluation 1115 Subjective Subjective: No Chest Pain, No shortness of breath, No Palpitations, No Dizziness, Other Vitals Vitals Vital Signs Date Time Temp Pulse Resp B/P (MAP) Pulse Ox O2 Delivery O2 Flow Rate FiO2 04/06/17 09:02 80 119/61 04/06/17 08:00 Room Air 04/06/17 07:00 98.2 18 94 98.2 04/05/17 08:00 2.0 Weight Weight [ ] Input and Output Intake and Output Intake and Output 04/06/17 06:59 Intake Total 1900 ml Output Total 1700 ml Balance 200 ml Intake Oral 1900 ml Output Urine Total 1700 ml Laboratory Labs Laboratory Tests Test 04/05/17 17:33 04/06/17 04:45 04/06/17 07:46 Glucose (Fingerstick) 177 mg/dL (70-99) 162 mg/dL (70-99) White Blood Count 11.4 x10^3/uL (4.0-11.0) Red Blood Count 3.21 x10^6/uL (4.30-5.70) Hemoglobin 9.7 g/dL (13.0-17.5) Hematocrit 27.9 % (39.0-53.0) Mean Corpuscular Volume 87 fL (79-100) Mean Corpuscular Hemoglobin 30 pg (25-35) Mean Corpuscular Hemoglobin Concent 35 g/dL (31-37) Red Cell Distribution Width 14.8 % (11.5-14.5) Platelet Count 129 x10^3/uL (140-400) Neutrophils (%) (Auto) 82 % (31-73) Lymphocytes (%) (Auto) 6 % (24-48) Monocytes (%) (Auto) 9 % (0-9) Eosinophils (%) (Auto) 2 % (0-3) Basophils (%) (Auto) 0 % (0-3) Neutrophils # (Auto) 9.4 x10^3uL (1.8-7.7) Lymphocytes # (Auto) 0.7 x10^3/uL (1.0-4.8) Monocytes # (Auto) 1.0 x10^3/uL (0.0-1.1) Eosinophils # (Auto) 0.2 x10^3/uL (0.0-0.7) Basophils # (Auto) 0.0 x10^3/uL (0.0-0.2) Sodium Level 135 mmol/L (136-145) Potassium Level 4.1 mmol/L (3.5-5.1) Chloride Level 102 mmol/L (98-107) Carbon Dioxide Level 22 mmol/L (21-32) Anion Gap 11 (6-14) Blood Urea Nitrogen 46 mg/dL (8-26) Creatinine 1.6 mg/dL (0.7-1.3) Estimated GFR (Cockcroft-Gault) 42.8 Glucose Level 191 mg/dL (70-99) Calcium Level 9.0 mg/dL (8.5-10.1) Microbiology Micro Microbiology 04/02/17 Blood Culture - Preliminary, Resulted NO GROWTH AFTER 4 DAYS Physical Exam HEENT: Neck Supple W Full Motion Chest: Symmetric LUNGS: Clear to Auscultation Heart: RRR (AFIB RVR) Abdomen: Soft N/T Extremities: No Calf Tenderness, Other (1-2+ bilateral LE pitting edema; RLE erythema ) Neurology: alert, oriented, follow commands Assessment Assessment 1. Afib with RVR; s/p cardioversion 2. Coronary artery disease 3. Hypertension 4. RLE cellulitis 5. Diabetes 6. Leukocytosis Recommendations Maintaining in SR, rate controlled with Toprol. Eliquis for stroke prevention. Continue secondary prevention measures. No further cardiac workup warranted; will follow along peripherally. Patient to f/u with routine mechanical product design engineer upon return to [place] STEWART MOLINA MD 04/06/17 2220: CARDIO Progress Notes Plan Plan Pt. seen and examined. Agree with above CUSTOMER RESOLUTION SPECIALIST note. No acute events overnight. Still in SR. Denies any chest pain, dyspnea. Continues to have fatigue. On iV abx. Labs/meds reviewed. RLE edema/erythema improved. continue lasix, statin, toprol and asa/eliquis Outpt initiation of lisinopril for HF history, defer now given recent MELA Will follow peripherally. Ok to DC from CV standpoint. Pls call with questions. CELE ESTRADA APRN April 06, 2017 10:46 STEWART MOLINA MD April 06, 2017 22:20
[2017-04-06 11:05] VITALS: BP 138/71
--- NOTE | 2017-04-06 14:17 | PDOC ---
PROGRESS NOTES Chief Complaint Chief Complaint Sepsis ASSESSMENT AND PLAN: 1. Sepsis: resolved 2. Bacteremia: beta hemolytic Strep C in blood cult. levaquin and Zosyn, as per ID service. SHILPI neg for vegetations. 3. Cellulitis: sl better. prob source of infection. US neg for DVT 4. MELA: 2/2 hypotension. creat leveling off, suspect baseline. d/c IVF 5. CKD: baseline unk, but pt aware of mild deficiency 6. CAD, CHF: no acute issues. ? fluid overload after fluid resuscitation: PRN lasix 7. Afib: RVR at admit. cardioversion on 04/03 successful, but now back in afib. cardiology service following 8. OAC: on apixiban 9. DM2: well controlled on home regimen. 10. Prophylaxis: PPI,(apixiban) 11. Transfer to medical floor History of Present Illness History of Present Illness doing well, no acute issues Vitals Vitals Vital Signs Date Time Temp Pulse Resp B/P (MAP) Pulse Ox O2 Delivery O2 Flow Rate FiO2 04/06/17 11:05 97.8 76 20 138/71 (93) 95 Room Air 97.8 04/05/17 08:00 2.0 Physical Exam General: Alert, Oriented X3, Cooperative, No acute distress Heart: Other (irreg) Lungs: Clear Abdomen: Normal bowel sounds, Soft, No tenderness Extremities: No edema Skin: No rashes Labs LABS Laboratory Tests Test 04/05/17 17:33 04/06/17 04:45 04/06/17 07:46 04/06/17 11:57 Glucose (Fingerstick) 177 mg/dL (70-99) 162 mg/dL (70-99) 191 mg/dL (70-99) White Blood Count 11.4 x10^3/uL (4.0-11.0) Red Blood Count 3.21 x10^6/uL (4.30-5.70) Hemoglobin 9.7 g/dL (13.0-17.5) Hematocrit 27.9 % (39.0-53.0) Mean Corpuscular Volume 87 fL (79-100) Mean Corpuscular Hemoglobin 30 pg (25-35) Mean Corpuscular Hemoglobin Concent 35 g/dL (31-37) Red Cell Distribution Width 14.8 % (11.5-14.5) Platelet Count 129 x10^3/uL (140-400) Neutrophils (%) (Auto) 82 % (31-73) Lymphocytes (%) (Auto) 6 % (24-48) Monocytes (%) (Auto) 9 % (0-9) Eosinophils (%) (Auto) 2 % (0-3) Basophils (%) (Auto) 0 % (0-3) Neutrophils # (Auto) 9.4 x10^3uL (1.8-7.7) Lymphocytes # (Auto) 0.7 x10^3/uL (1.0-4.8) Monocytes # (Auto) 1.0 x10^3/uL (0.0-1.1) Eosinophils # (Auto) 0.2 x10^3/uL (0.0-0.7) Basophils # (Auto) 0.0 x10^3/uL (0.0-0.2) Sodium Level 135 mmol/L (136-145) Potassium Level 4.1 mmol/L (3.5-5.1) Chloride Level 102 mmol/L (98-107) Carbon Dioxide Level 22 mmol/L (21-32) Anion Gap 11 (6-14) Blood Urea Nitrogen 46 mg/dL (8-26) Creatinine 1.6 mg/dL (0.7-1.3) Estimated GFR (Cockcroft-Gault) 42.8 Glucose Level 191 mg/dL (70-99) Calcium Level 9.0 mg/dL (8.5-10.1) Nutrition Consultation Dietary Evaluation: Recommendations by RD: Protein supplementation Comments: Add chocolate boost glucose control TID (250 calories/14 grams protein per serving) Provided an alternate menu for pt to update food preferences Encourage good PO intake Expected Outcomes/Goals: meet 75% estimated nutrition needs Malnutrition Findings: Reduced Eligibility And Occupancy Interviewer Strength: N/A Reduced Eligibility And Occupancy Interviewer Strength (Non-Sev: N/A Malnutrition related to morbid: No Weight Status: Obese Fluid Accumulation (N/A): N/A JOSSELINE BERGMAN MD April 06, 2017 14:17
[2017-04-06 14:52] VITALS: BP 110/58
[2017-04-06 19:35] VITALS: BP 134/57
[2017-04-06] MEDS: ATORVASTATIN CALCIUM 40 MG TABLET. PO SCH (21:15)
[2017-04-06 23:00] VITALS: BP 125/72
[2017-04-07] VITALS (7 sets, daily range): BP systolic 98–136; BP diastolic 63–74
[2017-04-07 03:36] LABS: BASO % 0 % (0-3); EOS % 3 % (0-3); HEMATOCRIT 26.6 % (39.0-53.0); HEMOGLOBIN 9.3 g/dL (13.0-17.5); LYMPH # 0.9 x10^3/uL (1.0-4.8); LYMPH % 9 % (24-48); MEAN CORPUSCULAR HEMOGLOBIN 30 pg (25-35); MEAN CORPUSCULAR HGB CONC 35 g/dL (31-37); MEAN CORPUSCULAR VOLUME 87 fL (79-100); MONO % 8 % (0-9); NEUT % 81 % (31-73); PLATELET COUNT 165 x10^3/uL (140-400); RED BLOOD COUNT 3.07 x10^6/uL (4.30-5.70); RED CELL DISTRIBUTION WIDTH 14.7 % (11.5-14.5); WHITE BLOOD COUNT 9.7 x10^3/uL (4.0-11.0)
[2017-04-07 03:49] LABS: CALCIUM 8.9 mg/dL (8.5-10.1); CREATININE 1.5 mg/dL (0.7-1.3); GFR 46.1; POTASSIUM 4.2 mmol/L (3.5-5.1)
[2017-04-07] MEDS: INSULIN ASPART 300 UNITS/3 ML INSULN.PEN SQ SCH ×7 (07:30→20:31)
[2017-04-07] MEDS: LINAGLIPTIN 5 MG TABLET PO SCH (08:17)
[2017-04-07] MEDS: APIXABAN 5 MG TABLET. PO SCH ×2 (08:18→20:31)
[2017-04-07] MEDS: PANTOPRAZOLE 40 MG TABLET.DR. PO SCH (08:18)
[2017-04-07] MEDS: CHOLECALCIFEROL (VITAMIN D3) 1,000 UNIT TABLET PO SCH (08:18)
[2017-04-07] MEDS: LACTOBACILLUS ACIDOPH & BULGAR 1 TABLET. PO SCH ×3 (08:18→17:05)
[2017-04-07] MEDS: FUROSEMIDE 20 MG TABLET PO SCH (08:18)
[2017-04-07] MEDS: ASPIRIN ENTERIC COATED 81 MG TABLET.DR. PO SCH (08:18)
--- NOTE | 2017-04-07 08:27 | PDOC ---
Infectious Disease Note Subjective Subjective Leg still painful - particularly when ambulating ROS ROS GEN: Denies fevers, chills, sweats HEENT: Denies blurred vision, sore throat CV: Denies chest pain RESP: Denies shortness of air, cough GI: Denies n/v/d NEURO: Denies confusion, dizziness MSK: Denies weakness Vital Sign Vital Signs Vital Signs Date Time Temp Pulse Resp B/P (MAP) Pulse Ox O2 Delivery O2 Flow Rate FiO2 04/07/17 08:00 Room Air 04/07/17 07:58 99.3 65 19 125/67 (86) 92 99.3 Physical Exam PHYSICAL EXAM GENERAL: NAD, in chair relaxed appearance HEENT: PERRL, nml conj. OC/OP- clear NECK: Supple, no LN LUNGS: Clear HEART: S1S2, no gallop, no murmur ABD: Obese, BS present, soft, NT EXT: + Charcot changes. RLE trace swelling, mild erythematous, warm-stable. Min to mod tenderness. tubigrip Left second toe with mild discoloration. joe SHOE HANDLER: Alert, oriented x 3, no focal neurologic deficit SKIN: No rash IVs: ok Labs Lab Laboratory Tests Test 04/06/17 11:57 04/06/17 21:14 04/07/17 03:00 Glucose (Fingerstick) 191 mg/dL (70-99) 132 mg/dL (70-99) White Blood Count 9.7 x10^3/uL (4.0-11.0) Red Blood Count 3.07 x10^6/uL (4.30-5.70) Hemoglobin 9.3 g/dL (13.0-17.5) Hematocrit 26.6 % (39.0-53.0) Mean Corpuscular Volume 87 fL (79-100) Mean Corpuscular Hemoglobin 30 pg (25-35) Mean Corpuscular Hemoglobin Concent 35 g/dL (31-37) Red Cell Distribution Width 14.7 % (11.5-14.5) Platelet Count 165 x10^3/uL (140-400) Neutrophils (%) (Auto) 81 % (31-73) Lymphocytes (%) (Auto) 9 % (24-48) Monocytes (%) (Auto) 8 % (0-9) Eosinophils (%) (Auto) 3 % (0-3) Basophils (%) (Auto) 0 % (0-3) Neutrophils # (Auto) 7.8 x10^3uL (1.8-7.7) Lymphocytes # (Auto) 0.9 x10^3/uL (1.0-4.8) Monocytes # (Auto) 0.7 x10^3/uL (0.0-1.1) Eosinophils # (Auto) 0.3 x10^3/uL (0.0-0.7) Basophils # (Auto) 0.0 x10^3/uL (0.0-0.2) Sodium Level 136 mmol/L (136-145) Potassium Level 4.2 mmol/L (3.5-5.1) Chloride Level 102 mmol/L (98-107) Carbon Dioxide Level 24 mmol/L (21-32) Anion Gap 10 (6-14) Blood Urea Nitrogen 46 mg/dL (8-26) Creatinine 1.5 mg/dL (0.7-1.3) Estimated GFR (Cockcroft-Gault) 46.1 Glucose Level 167 mg/dL (70-99) Calcium Level 8.9 mg/dL (8.5-10.1) Objective Assessment Strep C sepsis - POA 03/31. repeat 04/02 - neg so far cellulitis likely source RLE cellulitis - still painful and red. Difficult to ambulate Left 2 nd toe discoloration but no gross sign of infection. Hammer toe MELA - better Leukocytosis - better Right shoulder pain but exam appears benign. Labrum tear DM Afib Plan Plan of Care D/c Rocephin and Clindamycin to 300 mg. Restart Zosyn. Anticipate 1 to 2 days of IV abx Tubigrip F/u labs and cults Leg elevation JESSICA INFANTE MD April 07, 2017 08:27
[2017-04-07] MEDS: METOPROLOL SUCC 24HR ER 100 MG TAB.ER.24H. PO SCH (09:00)
[2017-04-07] MEDS: INSULIN DETEMIR 300 UNITS/3 ML INSULN.PEN. SQ SCH (09:27)
--- NOTE | 2017-04-07 11:07 | EKG ---
[facility] [address] [place] [address] Test Date: 2017-04-07 Test Time: 10:46:39 Pat Name: HILLARY BAKER Department: Room: 206 1 Gender: M Manager Public: JENNIFER : 1945 Requested By: JOSSELINE BERGMAN Order Number: [id number] Reading MD: Reynaldo Hickey Measurements Intervals [place] Rate: 62 P: 45 WA: 136 QRS: -19 QRSD: 110 T: 19 QT: 438 QTc: 447 Interpretive Statements SINUS RHYTHM RBBB NON-SPECIFIC ST/T CHANGES Electronically Signed On 04-08-2017 9:08:06 CDT by Reynaldo Hickey
[2017-04-07] MEDS: PIPERACILLIN/TAZOBACTAM 3.375 GM in IV NORMAL SALINE 50ML 50 ML IV SCH ×3 (11:58→23:42)
[2017-04-07] MEDS: ANTI-COAG MONITOR BY PHARMACY. MC PRN (14:43)
--- NOTE | 2017-04-07 15:49 | PDOC ---
PROGRESS NOTES Chief Complaint Chief Complaint Sepsis ASSESSMENT AND PLAN: 1. Sepsis: resolved 2. Bacteremia: beta hemolytic Strep C in blood cult. Abx as per ID service. SHILPI neg for vegetations. 3. Cellulitis: sl better. prob source of infection. US neg for DVT 4. MELA: 2/2 hypotension. creat leveling off, suspect baseline. d/c IVF 5. CKD: baseline unk, but pt aware of mild deficiency 6. CAD, CHF: no acute issues. ? fluid overload after fluid resuscitation: PRN lasix 7. Afib: RVR at admit. cardioversion on 04/03 successful, but now back in afib. cardiology service following 8. OAC: on apixiban 9. DM2: well controlled on home regimen. 10. Prophylaxis: PPI,(apixiban) 11. Dispo: home soon; ? IV vs PO abx; he is planning to go back home to [place], but could stay in the area at [facility] History of Present Illness History of Present Illness doing well, no acute issues. has not worked with PT/OT yet Vitals Vitals Vital Signs Date Time Temp Pulse Resp B/P (MAP) Pulse Ox O2 Delivery O2 Flow Rate FiO2 04/07/17 14:54 97.9 67 18 136/73 (94) 95 Room Air 97.9 Physical Exam General: Alert, Oriented X3, Cooperative, No acute distress Heart: Other (irreg) Lungs: Clear Abdomen: Normal bowel sounds, Soft, No tenderness Extremities: No edema Skin: No rashes Labs LABS Laboratory Tests Test 04/06/17 21:14 04/07/17 03:00 Glucose (Fingerstick) 132 mg/dL (70-99) White Blood Count 9.7 x10^3/uL (4.0-11.0) Red Blood Count 3.07 x10^6/uL (4.30-5.70) Hemoglobin 9.3 g/dL (13.0-17.5) Hematocrit 26.6 % (39.0-53.0) Mean Corpuscular Volume 87 fL (79-100) Mean Corpuscular Hemoglobin 30 pg (25-35) Mean Corpuscular Hemoglobin Concent 35 g/dL (31-37) Red Cell Distribution Width 14.7 % (11.5-14.5) Platelet Count 165 x10^3/uL (140-400) Neutrophils (%) (Auto) 81 % (31-73) Lymphocytes (%) (Auto) 9 % (24-48) Monocytes (%) (Auto) 8 % (0-9) Eosinophils (%) (Auto) 3 % (0-3) Basophils (%) (Auto) 0 % (0-3) Neutrophils # (Auto) 7.8 x10^3uL (1.8-7.7) Lymphocytes # (Auto) 0.9 x10^3/uL (1.0-4.8) Monocytes # (Auto) 0.7 x10^3/uL (0.0-1.1) Eosinophils # (Auto) 0.3 x10^3/uL (0.0-0.7) Basophils # (Auto) 0.0 x10^3/uL (0.0-0.2) Sodium Level 136 mmol/L (136-145) Potassium Level 4.2 mmol/L (3.5-5.1) Chloride Level 102 mmol/L (98-107) Carbon Dioxide Level 24 mmol/L (21-32) Anion Gap 10 (6-14) Blood Urea Nitrogen 46 mg/dL (8-26) Creatinine 1.5 mg/dL (0.7-1.3) Estimated GFR (Cockcroft-Gault) 46.1 Glucose Level 167 mg/dL (70-99) Calcium Level 8.9 mg/dL (8.5-10.1) Nutrition Consultation Dietary Evaluation: Recommendations by RD: Protein supplementation Comments: Continue the boost glucose control at breakfast only to meet calorie and protein needs Provided an alternate menu for pt to update food preferences Encourage good PO intake Pt declines any education information at this time Expected Outcomes/Goals: meet 75% estimated nutrition needs Malnutrition Findings: Reduced Staffing Program Manager Strength: N/A Reduced Staffing Program Manager Strength (Non-Sev: N/A Malnutrition related to morbid: No Weight Status: Obese Fluid Accumulation (N/A): N/A JOSSELINE BERGMAN MD April 07, 2017 15:49
[2017-04-07] MEDS: ATORVASTATIN CALCIUM 40 MG TABLET. PO SCH (20:31)
[2017-04-08 03:45] VITALS: BP 124/74
[2017-04-08] MEDS: PIPERACILLIN/TAZOBACTAM 3.375 GM in IV NORMAL SALINE 50ML 50 ML IV SCH ×4 (06:00→23:37)
[2017-04-08 06:28] LABS: CALCIUM 8.4 mg/dL (8.5-10.1); CREATININE 1.6 mg/dL (0.7-1.3); GFR 42.8; POTASSIUM 4.7 mmol/L (3.5-5.1)
[2017-04-08 06:41] LABS: BASO # 0.1 x10^3/uL (0.0-0.2); BASO % 1 % (0-3); EOS % 2 % (0-3); HEMATOCRIT 26.9 % (39.0-53.0); LYMPH # 0.6 x10^3/uL (1.0-4.8); LYMPH % 7 % (24-48); MEAN CORPUSCULAR HEMOGLOBIN 30 pg (25-35); MEAN CORPUSCULAR HGB CONC 34 g/dL (31-37); MEAN CORPUSCULAR VOLUME 89 fL (79-100); MONO % 8 % (0-9); NEUT % 83 % (31-73); PLATELET COUNT 204 x10^3/uL (140-400); RED BLOOD COUNT 3.04 x10^6/uL (4.30-5.70); RED CELL DISTRIBUTION WIDTH 14.7 % (11.5-14.5); WHITE BLOOD COUNT 9.5 x10^3/uL (4.0-11.0)
[2017-04-08 07:00] VITALS: BP 126/73
[2017-04-08] MEDS: INSULIN ASPART 300 UNITS/3 ML INSULN.PEN SQ SCH ×7 (07:30→20:29)
[2017-04-08] MEDS: INSULIN DETEMIR 300 UNITS/3 ML INSULN.PEN. SQ SCH (07:57)
[2017-04-08] MEDS: LACTOBACILLUS ACIDOPH & BULGAR 1 TABLET. PO SCH ×3 (08:04→17:14)
--- NOTE | 2017-04-08 08:04 | PDOC ---
Infectious Disease Note Subjective Subjective Leg better. Pain now mainly on outside and back ROS ROS GEN: Denies fevers, chills, sweats HEENT: Denies blurred vision, sore throat CV: Denies chest pain RESP: Denies shortness of air, cough GI: Denies n/v/d NEURO: Denies confusion, dizziness MSK: Denies weakness, joint pain/swelling Vital Sign Vital Signs Vital Signs Date Time Temp Pulse Resp B/P (MAP) Pulse Ox O2 Delivery O2 Flow Rate FiO2 04/08/17 03:45 98.8 74 20 124/74 (91) 94 Room Air 98.8 Physical Exam PHYSICAL EXAM GENERAL: NAD, in chair relaxed appearance HEENT: PERRL, nml conj. OC/OP- clear NECK: Supple, no LN LUNGS: Clear HEART: S1S2, no gallop, no murmur ABD: Obese, BS present, soft, NT EXT: + Charcot changes. RLE trace swelling, mild erythematous, warm-stable. Min to mod tenderness on lateral/post area with superficial abrasion today. tubigrip Left second toe with mild discoloration. 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 x 3, no focal neurologic deficit SKIN: No rash IVs: ok Labs Lab Laboratory Tests Test 04/08/17 05:45 White Blood Count 9.5 x10^3/uL (4.0-11.0) Red Blood Count 3.04 x10^6/uL (4.30-5.70) Hemoglobin 9.0 g/dL (13.0-17.5) Hematocrit 26.9 % (39.0-53.0) Mean Corpuscular Volume 89 fL (79-100) Mean Corpuscular Hemoglobin 30 pg (25-35) Mean Corpuscular Hemoglobin Concent 34 g/dL (31-37) Red Cell Distribution Width 14.7 % (11.5-14.5) Platelet Count 204 x10^3/uL (140-400) Neutrophils (%) (Auto) 83 % (31-73) Lymphocytes (%) (Auto) 7 % (24-48) Monocytes (%) (Auto) 8 % (0-9) Eosinophils (%) (Auto) 2 % (0-3) Basophils (%) (Auto) 1 % (0-3) Neutrophils # (Auto) 7.8 x10^3uL (1.8-7.7) Lymphocytes # (Auto) 0.6 x10^3/uL (1.0-4.8) Monocytes # (Auto) 0.7 x10^3/uL (0.0-1.1) Eosinophils # (Auto) 0.2 x10^3/uL (0.0-0.7) Basophils # (Auto) 0.1 x10^3/uL (0.0-0.2) Sodium Level 138 mmol/L (136-145) Potassium Level 4.7 mmol/L (3.5-5.1) Chloride Level 104 mmol/L (98-107) Carbon Dioxide Level 23 mmol/L (21-32) Anion Gap 11 (6-14) Blood Urea Nitrogen 40 mg/dL (8-26) Creatinine 1.6 mg/dL (0.7-1.3) Estimated GFR (Cockcroft-Gault) 42.8 Glucose Level 224 mg/dL (70-99) Calcium Level 8.4 mg/dL (8.5-10.1) Objective Assessment Strep C sepsis - POA 03/31. repeat 04/02 - neg so far cellulitis likely source RLE cellulitis - still painful and red. Difficult to ambulate Left 2 nd toe discoloration but no gross sign of infection. Hammer toe MELA - better Leukocytosis - better Right shoulder pain but exam appears benign. Labrum tear DM Afib Plan Plan of Care Cont Zosyn. he is improving. Will have nursing reinforce area of abrasion and if pain is controlled and he can function than can d/c on po cephalexin for 7 days Tubigrip F/u labs and cults Leg elevation JESSICA INFANTE MD April 08, 2017 08:04
[2017-04-08] MEDS: CHOLECALCIFEROL (VITAMIN D3) 1,000 UNIT TABLET PO SCH (08:05)
[2017-04-08] MEDS: APIXABAN 5 MG TABLET. PO SCH ×2 (08:05→20:23)
[2017-04-08] MEDS: PANTOPRAZOLE 40 MG TABLET.DR. PO SCH (08:05)
[2017-04-08] MEDS: FUROSEMIDE 20 MG TABLET PO SCH (08:05)
[2017-04-08] MEDS: ASPIRIN ENTERIC COATED 81 MG TABLET.DR. PO SCH (08:05)
[2017-04-08] MEDS: LINAGLIPTIN 5 MG TABLET PO SCH (08:05)
[2017-04-08] MEDS: METOPROLOL SUCC 24HR ER 100 MG TAB.ER.24H. PO SCH (08:08)
--- NOTE | 2017-04-08 08:55 | PDOC ---
PROGRESS NOTES Chief Complaint Chief Complaint Sepsis ASSESSMENT AND PLAN: 1. Sepsis: resolved 2. Bacteremia: beta hemolytic Strep C in blood cult. Abx as per ID service. SHILPI neg for vegetations. 3. Cellulitis: sl better. prob source of infection. US neg for DVT 4. MELA: 2/2 hypotension. creat leveling off, suspect baseline. d/c IVF 5. CKD: baseline unk, but pt aware of mild deficiency 6. CAD, CHF: no acute issues. ? fluid overload after fluid resuscitation: PRN lasix 7. Afib: RVR at admit. cardioversion on 04/03 successful, now in NSR w/RBBB. cardiology service following 8. OAC: on apixiban (for 1 mo month) 9. DM2: well controlled on home regimen. 10. Prophylaxis: PPI, (apixiban) 11. Dispo: home in AM; PO abx as per ID History of Present Illness History of Present Illness some leg pain with walking bilat; minor pain in swollen R leg. no SOB, CP Vitals Vitals Vital Signs Date Time Temp Pulse Resp B/P (MAP) Pulse Ox O2 Delivery O2 Flow Rate FiO2 04/08/17 08:08 74 128/76 04/08/17 08:00 Room Air 04/08/17 07:00 98.9 20 94 98.9 Physical Exam General: Alert, Oriented X3, Cooperative, No acute distress Heart: Other (sl irreg) Lungs: Clear Abdomen: Normal bowel sounds, Soft, No tenderness Extremities: No edema Skin: No rashes Labs LABS Laboratory Tests Test 04/08/17 05:45 White Blood Count 9.5 x10^3/uL (4.0-11.0) Red Blood Count 3.04 x10^6/uL (4.30-5.70) Hemoglobin 9.0 g/dL (13.0-17.5) Hematocrit 26.9 % (39.0-53.0) Mean Corpuscular Volume 89 fL (79-100) Mean Corpuscular Hemoglobin 30 pg (25-35) Mean Corpuscular Hemoglobin Concent 34 g/dL (31-37) Red Cell Distribution Width 14.7 % (11.5-14.5) Platelet Count 204 x10^3/uL (140-400) Neutrophils (%) (Auto) 83 % (31-73) Lymphocytes (%) (Auto) 7 % (24-48) Monocytes (%) (Auto) 8 % (0-9) Eosinophils (%) (Auto) 2 % (0-3) Basophils (%) (Auto) 1 % (0-3) Neutrophils # (Auto) 7.8 x10^3uL (1.8-7.7) Lymphocytes # (Auto) 0.6 x10^3/uL (1.0-4.8) Monocytes # (Auto) 0.7 x10^3/uL (0.0-1.1) Eosinophils # (Auto) 0.2 x10^3/uL (0.0-0.7) Basophils # (Auto) 0.1 x10^3/uL (0.0-0.2) Sodium Level 138 mmol/L (136-145) Potassium Level 4.7 mmol/L (3.5-5.1) Chloride Level 104 mmol/L (98-107) Carbon Dioxide Level 23 mmol/L (21-32) Anion Gap 11 (6-14) Blood Urea Nitrogen 40 mg/dL (8-26) Creatinine 1.6 mg/dL (0.7-1.3) Estimated GFR (Cockcroft-Gault) 42.8 Glucose Level 224 mg/dL (70-99) Calcium Level 8.4 mg/dL (8.5-10.1) Nutrition Consultation Dietary Evaluation: Recommendations by RD: Protein supplementation Comments: Continue the boost glucose control at breakfast only to meet calorie and protein needs Provided an alternate menu for pt to update food preferences Encourage good PO intake Pt declines any education information at this time Expected Outcomes/Goals: meet 75% estimated nutrition needs Malnutrition Findings: 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
[2017-04-08 11:00] VITALS: BP 130/69
[2017-04-08] MEDS ORDERED: NITR0.4T SL (13:58)
[2017-04-08] MEDS ORDERED: ASPI81TA9 PO (13:58)
[2017-04-08] MEDS ORDERED: METO100T11 PO (13:58)
[2017-04-08] MEDS ORDERED: FURO20TA3 PO (13:58)
[2017-04-08 15:00] VITALS: BP 137/74
[2017-04-08] MEDS ORDERED: CEPH500C PO (16:26)
[2017-04-08 19:35] VITALS: BP 122/93
[2017-04-08] MEDS: ATORVASTATIN CALCIUM 40 MG TABLET. PO SCH (20:23)
[2017-04-08 23:30] VITALS: BP 118/78
[2017-04-09 02:57] VITALS: BP 121/72
[2017-04-09] MEDS: PIPERACILLIN/TAZOBACTAM 3.375 GM in IV NORMAL SALINE 50ML 50 ML IV SCH (06:00)
[2017-04-09 07:00] VITALS: BP 140/76
[2017-04-09] MEDS: INSULIN ASPART 300 UNITS/3 ML INSULN.PEN SQ SCH ×4 (07:30→12:58)
[2017-04-09] MEDS: ANTI-COAG MONITOR BY PHARMACY. MC PRN (07:48)
--- NOTE | 2017-04-09 08:09 | PDOC ---
Infectious Disease Note Subjective Subjective Leg better. Ready to go ROS ROS GEN: Denies fevers, chills, sweats HEENT: Denies blurred vision, sore throat CV: Denies chest pain RESP: Denies shortness of air, cough GI: Denies n/v/d NEURO: Denies confusion, dizziness MSK: Denies weakness, joint pain/swelling Vital Sign Vital Signs Vital Signs Date Time Temp Pulse Resp B/P (MAP) Pulse Ox O2 Delivery O2 Flow Rate FiO2 04/09/17 02:57 98.0 69 24 121/72 (88) 94 Room Air 98.0 Physical Exam PHYSICAL EXAM GENERAL: NAD, in bed, relaxed appearance HEENT: PERRL, nml conj. OC/OP- clear NECK: Supple, no LN LUNGS: Clear HEART: S1S2, no gallop, no murmur ABD: Obese, BS present, soft, NT EXT: + Charcot changes. RLE trace swelling, mild erythematous, warm-stable. Min to no tenderness on lateral/post area with superficial abrasion today. tubigrip Left second toe with mild discoloration. 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 repeat 04/02 - neg so far cellulitis likely source RLE cellulitis - still painful and red. Difficult to ambulate Left 2 nd toe discoloration but no gross sign of infection. Hammer toe MELA - better Leukocytosis - better Right shoulder pain but exam appears benign. Labrum tear DM Afib Plan Plan of Care Discont Zosyn Can d/c on po cephalexin for 7 days JESSICA De MD April 09, 2017 08:09
[2017-04-09] MEDS: FUROSEMIDE 20 MG TABLET PO SCH (09:05)
[2017-04-09] MEDS: LACTOBACILLUS ACIDOPH & BULGAR 1 TABLET. PO SCH ×2 (09:06→12:46)
[2017-04-09] MEDS: ASPIRIN ENTERIC COATED 81 MG TABLET.DR. PO SCH (09:06)
[2017-04-09] MEDS: METOPROLOL SUCC 24HR ER 100 MG TAB.ER.24H. PO SCH (09:06)
[2017-04-09] MEDS: APIXABAN 5 MG TABLET. PO SCH (09:06)
[2017-04-09] MEDS: LINAGLIPTIN 5 MG TABLET PO SCH (09:06)
[2017-04-09] MEDS: PANTOPRAZOLE 40 MG TABLET.DR. PO SCH (09:06)
[2017-04-09] MEDS: CHOLECALCIFEROL (VITAMIN D3) 1,000 UNIT TABLET PO SCH (09:06)
[2017-04-09] MEDS: CEPHALEXIN 250 MG CAPSULE. PO SCH ×2 (09:11→12:46)
[2017-04-09] MEDS: INSULIN DETEMIR 300 UNITS/3 ML INSULN.PEN. SQ SCH (09:18)
[2017-04-09 11:00] VITALS: BP 113/69
[2017-04-09] MEDS ORDERED: INSU100C SQ (11:40)
[2017-04-09] MEDS ORDERED: ATOR40TA59 PO (11:40)
[2017-04-09] MEDS ORDERED: APIX5TAB PO (11:40)
[2017-04-09] MEDS ORDERED: INSU100I13 SQ (11:40)
--- NOTE | 2017-04-09 11:54 | PDOC ---
PROGRESS NOTES Chief Complaint Chief Complaint Sepsis ASSESSMENT AND PLAN: 1. Sepsis: resolved 2. Bacteremia: beta hemolytic Strep C in blood cult. Abx Changed to keflex at DC, SHILPI neg for vegetations. 3. Cellulitis LE: better. prob source of infection. US neg for DVT 4. MELA: 2/2 hypotension. creat better, decreased the dose of Lasix. 5. CKD: baseline unknown, but pt aware of mild deficiency 6. CAD, CHF hx : no acute issues. PRN lasix 7. Afib: RVR at admit. cardioversion on 04/03 successful, now in NSR w/RBBB. On Eliquis 8. OAC: on apixaban (for 1 mo month) 9. DM2: well controlled on home regimen on Insulin, no changes from home regimen. 10. Disposition: home today, History of Present Illness History of Present Illness doing better no fever no chills. Vitals Vitals Vital Signs Date Time Temp Pulse Resp B/P (MAP) Pulse Ox O2 Delivery O2 Flow Rate FiO2 04/09/17 09:06 71 140/76 04/09/17 07:55 Room Air 04/09/17 07:00 98.4 21 93 98.4 Physical Exam General: Alert, Oriented X3, Cooperative, No acute distress Heart: Normal S1, Normal S2, Other Lungs: Clear Abdomen: Normal bowel sounds, Soft, No tenderness Extremities: No edema Skin: No rashes Labs LABS Laboratory Tests Test 04/08/17 16:52 04/08/17 20:28 04/09/17 07:56 Glucose (Fingerstick) 179 mg/dL (70-99) 140 mg/dL (70-99) 119 mg/dL (70-99) Assessment and Plan Assessmemt and Plan Problems Medical Problems: (1) CHF (congestive heart failure) Status: Acute (2) Pneumonia Status: Acute (3) Sepsis Status: Acute Problems: Comment Review of Relevant I have reviewed the following items gio (where applicable) has been applied. Labs Laboratory Tests Test 04/08/17 05:45 04/08/17 16:52 04/08/17 20:28 04/09/17 07:56 White Blood Count 9.5 x10^3/uL (4.0-11.0) Red Blood Count 3.04 x10^6/uL (4.30-5.70) Hemoglobin 9.0 g/dL (13.0-17.5) Hematocrit 26.9 % (39.0-53.0) Mean Corpuscular Volume 89 fL (79-100) Mean Corpuscular Hemoglobin 30 pg (25-35) Mean Corpuscular Hemoglobin Concent 34 g/dL (31-37) Red Cell Distribution Width 14.7 % (11.5-14.5) Platelet Count 204 x10^3/uL (140-400) Neutrophils (%) (Auto) 83 % (31-73) Lymphocytes (%) (Auto) 7 % (24-48) Monocytes (%) (Auto) 8 % (0-9) Eosinophils (%) (Auto) 2 % (0-3) Basophils (%) (Auto) 1 % (0-3) Neutrophils # (Auto) 7.8 x10^3uL (1.8-7.7) Lymphocytes # (Auto) 0.6 x10^3/uL (1.0-4.8) Monocytes # (Auto) 0.7 x10^3/uL (0.0-1.1) Eosinophils # (Auto) 0.2 x10^3/uL (0.0-0.7) Basophils # (Auto) 0.1 x10^3/uL (0.0-0.2) Sodium Level 138 mmol/L (136-145) Potassium Level 4.7 mmol/L (3.5-5.1) Chloride Level 104 mmol/L (98-107) Carbon Dioxide Level 23 mmol/L (21-32) Anion Gap 11 (6-14) Blood Urea Nitrogen 40 mg/dL (8-26) Creatinine 1.6 mg/dL (0.7-1.3) Estimated GFR (Cockcroft-Gault) 42.8 Glucose Level 224 mg/dL (70-99) Calcium Level 8.4 mg/dL (8.5-10.1) Glucose (Fingerstick) 179 mg/dL (70-99) 140 mg/dL (70-99) 119 mg/dL (70-99) Laboratory Tests Test 04/08/17 16:52 04/08/17 20:28 04/09/17 07:56 Glucose (Fingerstick) 179 mg/dL (70-99) 140 mg/dL (70-99) 119 mg/dL (70-99) Microbiology 04/02/17 Blood Culture - Final, Complete NO GROWTH AFTER 5 DAYS Medications Current Medications Diltiazem HCl 125 mg/Dextrose 125 ml @ 0 mls/hr 1X ONCE IV Last administered on 03/31/17 19:30; Start 03/31/17 at 19:30; Stop 03/31/17 at 19:31; Status DC Diltiazem HCl (Cardizem) 20 mg 1X ONCE IVP Last administered on 03/31/17 19:18 ; Start 03/31/17 at 19:15; Stop 03/31/17 at 19:24; Status DC Ondansetron HCl (Zofran) 4 mg 1X ONCE IV Last administered on 03/31/17 20:01; Start 03/31/17 at 20:00; Stop 03/31/17 at 20:01; Status DC Nitroglycerin (Nitrostat) 0.4 mg PRN Q5MIN PRN SL CHEST PAIN Last administered on 03/31/17 20:03; Start 03/31/17 at 20:00 Levofloxacin/ Dextrose 150 ml @ 100 mls/hr 1X ONCE IV Last administered on 20:23; Start 03/31/17 at 20:15; Stop 03/31/17 at 21:44; Status DC Acetaminophen (Tylenol) 1,000 mg 1X ONCE PO Last administered on 03/31/17 20: 38; Start 03/31/17 at 20:45; Stop 03/31/17 at 20:46; Status DC Furosemide (Lasix) 20 mg 1X ONCE IVP Last administered on 03/31/17 22:02; Start 03/31/17 at 21:15; Stop 03/31/17 at 21:16; Status DC Bisacodyl (Dulcolax Supp) [address] Last administered on 03/31/17 21:38 ; Start 03/31/17 at 21:30; Stop 03/31/17 at 21:31; Status DC Digoxin (Lanoxin) 250 mcg 1X ONCE IV Last administered on 03/31/17 21:51; Start 03/31/17 at 21:30; Stop 03/31/17 at 21:31; Status DC Sodium Chloride 1,000 ml @ 75 mls/hr 1X ONCE IV Last administered on 22:00; Start 03/31/17 at 21:30; Stop 04/01/17 at 10:49; Status DC Piperacillin Sod/ Tazobactam Sod 3.375 gm/Sodium Chloride 50 ml @ 100 mls/hr 1X ONCE IV Last administered on 03/31/17 21:39; Start 03/31/17 at 21:30; Stop 03/31/17 at 21:59; Status DC Sodium Chloride 500 ml @ 500 mls/hr 1X ONCE IV Last administered on 03/31/17 21:30; Start 03/31/17 at 22:00; Stop 03/31/17 at 22:59; Status DC Acetaminophen (Tylenol) 650 mg PRN Q6HRS PRN PO PAIN Last administered on 07:41; Start 04/01/17 at 01:45 Sodium Chloride 1,000 ml @ 500 mls/hr 1X ONCE IV Last administered on 01:53; Start 04/01/17 at 01:45; Stop 04/01/17 at 03:44; Status DC Levofloxacin/ Dextrose 150 ml @ 100 mls/hr Q24H IV ; Start 04/01/17 at 21:00; Stop 04/01/17 at 21:00; Status DC Piperacillin Sod/ Tazobactam Sod 3.375 gm/Sodium Chloride 50 ml @ 100 mls/hr Q8HRS IV Last administered on 04/01/17 05:53; Start 04/01/17 at 06:00; Stop at 09:53; Status DC Sodium Chloride 1,000 ml @ 1,000 mls/hr 1X ONCE IV Last administered on 03:05; Start 04/01/17 at 03:15; Stop 04/01/17 at 04:14; Status DC Norepinephrine Bitartrate 250 ml @ 0 mls/hr CONT PRN IV SEE I/O RECORD Last administered on 04/01/17 20:32; Start 04/01/17 at 04:00; Stop 04/05/17 at 01:47 ; Status DC Potassium Chloride 100 ml @ 100 mls/hr Q1H IV Last administered on 04/01/17 08:03; Start 04/01/17 at 04:30; Stop 04/01/17 at 08:29; Status DC Daptomycin 670 mg/ Sodium Chloride 50 ml @ 100 mls/hr ONCE ONCE IV Last administered on 04/01/17 10:29; Start 04/01/17 at 10:00; Stop 04/01/17 at 10:29 ; Status DC Piperacillin Sod/ Tazobactam Sod 2.25 gm/Sodium Chloride 50 ml @ 100 mls/hr Q6HRS IV ; Start 04/01/17 at 10:00; Stop 04/01/17 at 10:00; Status DC Heparin Sodium (Porcine) 5,000 unit BID SQ Last administered on 04/02/17 09:02 ; Start 04/01/17 at 10:30; Stop 04/02/17 at 09:32; Status DC Potassium Chloride/Sodium Chloride 1,000 ml @ 75 mls/hr [id number] IV Last administered on 04/04/17 02:43; Start 04/01/17 at 10:30; Stop 04/04/17 at 19:35 ; Status DC Piperacillin Sod/ Tazobactam Sod 2.25 gm/Sodium Chloride 50 ml @ 100 mls/hr Q6HRS IV Last administered on 04/03/17 05:40; Start 04/01/17 at 12:00; Stop at 08:17; Status DC Levofloxacin/ Dextrose 150 ml @ 100 mls/hr Q48H IV ; Start 04/02/17 at 21:00; Stop 04/02/17 at 21:00; Status DC Sodium Chloride 1,000 ml @ 1,000 mls/hr 1X ONCE IV Last administered on 11:45; Start 04/01/17 at 11:45; Stop 04/01/17 at 12:44; Status DC Apixaban (Eliquis) 5 mg BID PO Last administered on 04/09/17 09:06; Start 09/08 at 13:00 Atorvastatin Calcium (Lipitor) 40 mg QHS PO Last administered on 04/08/17 20: 23; Start 04/01/17 at 21:00 Vitamin D (Vitamin D3) 1,000 unit DAILY PO Last administered on 04/09/17 09:06 ; Start 04/01/17 at 13:00 Metoprolol Succinate (Toprol Xl) 100 mg DAILY PO Last administered on 09:06; Start 04/01/17 at 13:00 Pantoprazole Sodium (Protonix) 40 mg DAILY PO Last administered on 04/09/17 09 :06; Start 04/01/17 at 12:30 Insulin Detemir (Levemir) 60 units DAILY08 SQ Last administered on 04/09/17 09 :18; Start 04/02/17 at 08:00 Insulin Aspart (Novolog) 16 units TIDAC SQ ; Start 04/01/17 at 12:30; Stop 04/01 at 12:49; Status DC Linagliptin (Tradjenta) 5 mg DAILY PO Last administered on 04/09/17 09:06; Start 04/01/17 at 13:00 Insulin Aspart (Novolog) 0-7 UNITS TIDWMEALS SQ ; Start 04/01/17 at 17:00; Stop 04/01/17 at 18:56; Status DC Dextrose (Dextrose 50%-Water Syringe) 12.5 gm PRN Q15MIN PRN IV SEE COMMENTS; Start 04/01/17 at 12:30 Insulin Aspart (Novolog) 16 units TIDAC SQ Last administered on 04/09/17 09:17 ; Start 04/01/17 at 16:30 Insulin Aspart (Novolog) 0-7 UNITS QIDACHS SQ Last administered on 04/05/17 17 :48; Start 04/01/17 at 21:00 Sodium Chloride 1,000 ml @ 333 mls/hr 1X ONCE IV Last administered on 21:29; Start 04/01/17 at 21:00; Stop 04/02/17 at 02:07; Status DC Digoxin (Lanoxin) 250 mcg 1X ONCE IV Last administered on 04/02/17 01:30; Start 04/02/17 at 00:45; Stop 04/02/17 at 02:16; Status DC Digoxin (Lanoxin) 250 mcg 1X ONCE IV ; Start 04/02/17 at 01:15; Stop 04/02/17 at 02:07; Status DC Enoxaparin Sodium (Lovenox 40mg Syringe) 40 mg Q24H SQ ; Start 04/02/17 at 09:30 ; Status UNV Digoxin (Lanoxin) 250 mcg 1X ONCE IV Last administered on 04/02/17 09:47; Start 04/02/17 at 10:15; Stop 04/02/17 at 10:16; Status DC Metoprolol Tartrate (Lopressor) 5 mg 1X ONCE IVP ; Start 04/02/17 at 10:00; Stop 04/02/17 at 10:01; Status DC Magnesium Sulfate/ Dextrose 100 ml @ 25 mls/hr 1X ONCE IV Last administered on 04/02/17 12:26; Start 04/02/17 at 11:30; Stop 04/02/17 at 15:29; Status DC Info (Anti-Coagulation Monitoring By Pharmacy) 1 each PRN DAILY PRN MC SEE COMMENTS Last administered on 04/09/17 07:48; Start 04/02/17 at 15:45 Sodium Chloride (Normal Saline Flush) 10 ml QSHIFT PRN IV AFTER MEDS AND BLOOD DRAWS; Start 04/02/17 at 15:45 Lidocaine HCl (Xylocaine 2% Topical 5gm Tube) 1 lex 1X ONCE TP ; Start at 15:45; Stop 04/02/17 at 15:46; Status DC Lidocaine HCl (Viscous Lidocaine) 15 ml 1X ONCE MM ; Start 04/02/17 at 15:45; Stop 04/02/17 at 15:46; Status DC Benzocaine (Hurricaine One) 3 spray 1X ONCE MM ; Start 04/02/17 at 15:45; Stop 04/02/17 at 15:46; Status DC Piperacillin Sod/ Tazobactam Sod 3.375 gm/Sodium Chloride 50 ml @ 100 mls/hr Q6HRS IV Last administered on 04/04/17 11:36; Start 04/03/17 at 12:00; Stop at 14:31; Status DC Benzocaine (Hurricaine One) 1 spray 1X ONCE MM ; Start 04/03/17 at 13:00; Stop 04/03/17 at 13:01; Status UNV Benzocaine (Hurricaine One) 3 spray 1X ONCE MM ; Start 04/03/17 at 13:00; Stop 04/03/17 at 13:01; Status DC Propofol 40 ml @ As Directed STK-MED ONCE IV ; Start 04/03/17 at 12:55; Stop 11/08 at 12:56; Status DC Lidocaine HCl (Xylocaine-Mpf 1% Vial) 5 ml STK-MED ONCE .ROUTE ; Start 04/03/17 at 12:55; Stop 04/03/17 at 12:56; Status DC Lidocaine HCl (Glydo (Lidocaine) Jelly) 1 lex 1X STAT MM ; Start 04/03/17 at 12 :53; Stop 04/03/17 at 12:59; Status DC Ceftriaxone Sodium 2 gm/ Sodium Chloride 100 ml @ 200 mls/hr Q24H IV Last administered on 04/06/17 15:10; Start 04/04/17 at 15:00; Stop 04/07/17 at 08:23 ; Status DC Clindamycin HCl (Cleocin) 150 mg TID PO Last administered on 04/05/17 20:53; Start 04/04/17 at 15:00; Stop 04/06/17 at 07:55; Status DC Acetaminophen/ Hydrocodone Bitart (Lortab 5/325) 1 tab PRN Q6HRS PRN PO SEVERE PAIN Last administered on 04/05/17 10:18; Start 04/04/17 at 22:00 Furosemide (Lasix) 20 mg 1X ONCE IVP Last administered on 04/05/17 10:17; Start 04/05/17 at 10:30; Stop 04/05/17 at 10:31; Status DC Furosemide (Lasix) 20 mg DAILY PO Last administered on 04/09/17 09:05; Start 04/06/17 at 09:00 Aspirin (Ecotrin) 81 mg [id number] PO Last administered on 04/09/17 09:06; Start 04/05/17 at 10:30 Clindamycin HCl (Cleocin) 300 mg TID PO Last administered on 04/06/17 21:28; Start 04/06/17 at 09:00; Stop 04/07/17 at 08:24; Status DC Lactobacillus Acidophilus (Bacid, Donna-Bid) 1 tab TIDWMEALS PO Last administered on 04/09/17 09:06; Start 04/06/17 at 08:00 Piperacillin Sod/ Tazobactam Sod 3.375 gm/Sodium Chloride 50 ml @ 100 mls/hr Q6HRS IV Last administered on 04/09/17 06:00; Start 04/07/17 at 12:00; Stop at 08:09; Status DC Cephalexin HCl (Keflex) 500 mg QID PO Last administered on 04/09/17t 09:11; Start 04/09/17 at 09:00 Active Scripts Active Humalog (Insulin Lispro) 100 Unit/1 Ml Cartridge 16 Unit SQ TIDAC 30 Days Lantus Solostar (Insulin Glargine,Hum.rec.anlog) 100 Unit/1 Ml Insuln.pen 60 Unit SQ DAILY08 30 Days Atorvastatin Calcium 40 Mg Tablet 1 Tab PO DAILY Eliquis (Apixaban) 5 Mg Tablet 5 Mg PO BID Cephalexin 500 Mg Capsule 1 Cap PO TID Nitrostat (Nitroglycerin) 0.4 Mg Tab.subl 0.4 Mg SL PRN Q5MIN PRN Metoprolol Succinate ( Xl ) (Metoprolol Succinate) 100 Mg Tab.er.24h 100 Mg PO DAILY Furosemide 20 Mg Tablet 20 Mg PO DAILY Reported Vitamin D3 (Cholecalciferol (Vitamin D3)) 1,000 Unit Tablet 1 Tab PO DAILY Pantoprazole Sodium 40 Mg Tablet.dr 1 Tab PO DAILY Furosemide 80 Mg Tablet 1 Tab PO DAILY Perindopril Erbumine 4 Mg Tablet 4 Mg PO Coenzyme Q10 (Ubidecarenone) 100 Mg Capsule 100 Mg PO Metolazone 2.5 Mg Tablet 2.5 Mg PO DAILY Januvia (Sitagliptin Phosphate) 50 Mg Tablet 1 Tab PO DAILY Vitals/I & O Vital Sign - Last 24 Hours 04/08/17 04/08/17 04/08/17 04/08/17 15:00 19:35 20:00 23:30 Temp 98.6 98.5 98.6 98.6 98.5 98.6 Pulse 99 72 68 Resp 20 21 18 B/P (MAP) 137/74 (95) 122/93 (103) 118/78 (91) Pulse Ox 95 95 94 O2 Delivery Room Air Room Air Room Air Room Air 04/09/17 04/09/17 04/09/17 04/09/17 02:57 07:00 07:55 09:06 Temp 98.0 98.4 98.0 98.4 Pulse 69 71 71 Resp 24 21 B/P (MAP) 121/72 (88) 140/76 (97) 140/76 Pulse Ox 94 93 O2 Delivery Room Air Room Air Room Air Intake and Output 04/08/17 04/08/17 04/09/17 15:00 23:00 07:00 Intake Total 750 ml 550 ml Output Total 1575 ml 800 ml Balance -825 ml -250 ml Nutrition Consultation Dietary Evaluation: Recommendations by RD: Protein supplementation Comments: Continue the boost glucose control at breakfast only to meet calorie and protein needs Provided an alternate menu for pt to update food preferences Encourage good PO intake Pt declines any education information at this time Expected Outcomes/Goals: meet 75% estimated nutrition needs Malnutrition Findings: 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
--- NOTE | 2017-04-09 21:48 | DS ---
DATE OF DISCHARGE: 04/09/2017 DISCHARGE DIAGNOSES: 1. Sepsis present on admission. 2. Bacteremia, beta hemolytic strep C. Antibiotics changed to Keflex at discharge. 3. Transesophageal echocardiography negative for vegetations. 4. Cellulitis of lower extremity, probably source of infection for bacteremia. Ultrasound negative for deep venous thrombosis. 5. ____ likely due to dehydration, hypertension. Creatinine better. Decreasing the dose of Lasix. 4. Chronic kidney disease, unknown baseline. 5. Coronary artery history and congestive heart failure history. 6. Atrial fibrillation with rapid ventricular response at presentation, status post cardioversion successful, currently normal sinus rhythm, on Eliquis. 7. Oral anticoagulation, on Eliquis. 8. Type 2 diabetes mellitus, on insulin, currently controlled. BRIEF HOSPITAL COURSE: A 71-year-old male patient admitted to the hospital on 04/01/2017 for nausea, vomiting and diarrhea. During the hospitalization the patient was diagnosed with AFib with RVR and on 04/03/2017 had a cardioversion, which was successful. Also, he was diagnosed with beta hemolytic strep C bacteremia and initially was placed on broad spectrum antibiotics and followed by Infectious Disease. Later antibiotics have been changed to Keflex at discharge. At the time of discharge, the patient deemed clinically stable enough to go home and follow up with the primary care doctor in a couple of weeks. All new scripts provided. The patient's Lasix dose has been decreased to 20 mg b.i.d. due to his renal functions. DISCHARGE EXAMINATION: GENERAL: Alert, oriented x 3. HEART: S1, S2 present. CHEST: Anterior chest clear. ABDOMEN: Soft, nontender, no organomegaly. EXTREMITIES: Mild edema. DISCHARGE DISPOSITION: Home. DISCHARGE CONDITION: Stable. DISCHARGE DIET: Cardiac diet. Follow up with primary care doctor in 1-4 weeks. DISCHARGE MEDICATIONS: 1. Please see my discharge instructions. New script Keflex 500 mg p.o. b.i.d. 2. Furosemide 20 mg p.o. daily. 3. Metoprolol succinate 100 mg q. daily. 4. Nitroglycerin 0.4 mg p.r.n. for chest pain. 5. Apixaban 5 mg p.o. b.i.d. Total time spent for discharge is 32 minutes for patient education, counseling and coordination of care and physical examination. REY RAND MD DR: Skylar JOB#: [id number] / [id number]
== END 2017-04-09 15:00 | disposition home or self-care (01) | DRG 871 ==
LOC: ER 19:01 → 1 WEST ICU 21:00 → 2 NORTH 04-04 17:31
PROVIDERS: ADMIT Internal Medicine Hematology & Oncology; ATTEND Internal Medicine Hematology & Oncology
PROC: B246ZZ4 Ultrasonography of Right and Left Heart, Transesophageal (ICD-10-PCS; principal; 2017-04-06)
DX: A40.9 Streptococcal sepsis, unspecified (principal); R65.21 Severe sepsis with septic shock; I13.0 Hypertensive heart and chronic kidney disease with heart failure and stage 1 through stage 4 chronic kidney disease, or unspecified chronic kidney disease; I50.22 Chronic systolic (congestive) heart failure; J44.0 Chronic obstructive pulmonary disease with (acute) lower respiratory infection; L03.115 Cellulitis of right lower limb; N17.9 Acute kidney failure, unspecified; E11.22 Type 2 diabetes mellitus with diabetic chronic kidney disease; I25.10 Atherosclerotic heart disease of native coronary artery without angina pectoris; E11.610 Type 2 diabetes mellitus with diabetic neuropathic arthropathy; E78.5 Hyperlipidemia, unspecified; E83.42 Hypomagnesemia; E86.0 Dehydration; I45.10 Unspecified right bundle-branch block; I48.0 Paroxysmal atrial fibrillation; K21.9 Gastro-esophageal reflux disease without esophagitis; M14.679 Charcot's joint, unspecified ankle and foot; M20.40 Other hammer toe(s) (acquired), unspecified foot; N18.9 Chronic kidney disease, unspecified; Z79.01 Long term (current) use of anticoagulants; Z79.4 Long term (current) use of insulin; Z83.3 Family history of diabetes mellitus; Z95.5 Presence of coronary angioplasty implant and graft; Z82.49 Family history of ischemic heart disease and other diseases of the circulatory system
CPT/HCPCS: 36415; 36600; 71010; 73030; 73221; 80048; 80053; 81001; 82805; 82947; 83605; 83735; 83880; 84443; 84484; 85007; 85027; 86140; 87040; 87205; 87324; 87641; 93005; 93306; 93312; 93325; 93971; 96365; 96367; 96375; J0696; J0878; J1160; J1815; J1956; J2405; J2543; J2704; J3475; J3480; J3490; J7030; J7040; 97116; 97530; 99285-25